=== PATIENT | female | born 1995 | race African-American/Black ===

== ENCOUNTER 2021-03-10 23:11 | Emergency (ER) | payer OTHER ==
[~2021-03-10] VITALS: Ht 165.1 cm; Wt 50.4 kg
[2021-03-10] MEDS ORDERED: IV NORMAL SALINE 1,000ML 1,000 ML IV ONE (23:30)
--- NOTE | 2021-03-10 23:35 | PHYS DOC ---
General Adult EDM: Chief Complaint: OB/UTERINE CONTRACTIONS HPI: HPI: Patient is a 25 year old female who presents with contractions. She states she is 7 months and started having pain that felt like contractions earlier tonight. She says she gets pain every few minutes but has not kept track of how often. Her last OB appointment was in February and she is due in April. She says she had some clear colored discharge 2 days ago but has had no bleeding. She complains of her vaginal area feeling irritated and itchy. She denies nausea, vomiting, fever, headache, dizziness. Review of Systems: Review of Systems: Constitutional: Denies fever or chills Eyes: Denies redness or eye pain HENT: Denies nasal congestion or sore throat Respiratory: Denies cough or shortness of breath Cardiovascular: Denies chest pain or palpitations GI: Denies nausea, or vomiting. : Denies dysuria or hematuria. Complains of irritation in vaginal area. Musculoskeletal: Denies back pain or joint pain Integument: Denies rash or skin lesions Neurologic: Denies headache, focal weakness or sensory changes Complete systems were reviewed and found to be within normal limits, except as documented in this note. Current Medications: Current Meds: Current Medications Medications (Trade) Dose Ordered Sig/Gabino Start Time Stop Time Status Last Admin Dose Admin Sodium Chloride 1,000 ml @ 1,000 mls/hr 1X ONCE 03/10/21 23:30 03/11/21 00:29 UNV Physical Exam: PE: Constitutional: Well developed, thin, no acute distress, non-toxic appearance HENT: Normocephalic, atraumatic Eyes: EOMI, conjunctiva normal, no discharge Neck: Normal range of motion, no tenderness, supple Lungs & Thorax: No respiratory distress, equal chest rise and fall Abdomen: Soft, no tenderness Skin: Warm, dry, no erythema, no rash Back: No tenderness, no CVA tenderness Extremities: No tenderness, ROM intact, no edema Neurologic: Alert and oriented X 3, normal motor function, normal sensory function, no focal deficits noted Psychologic: Affect normal, judgment normal EKG: EKG: [] Radiology/Procedures: Radiology/Procedures: [] Heart Score: C/O Chest Pain: N/A Course & Med Decision Making: Course & Med Decision Making Pertinent Lab studies reviewed. (See chart for details) Patient presents at approximately 33 weeks with report of concern for uterine contractions. Patient does have a history of some discharge 2 days ago for which she was instructed by her OB to present to for further evaluation and treatment. Patient typically follows with Dr. Guzman (OB). No noted. Some pelvic white discharge appreciated. Cervix appears dilated to 3cm. heart rate of 130bpm. Labs obtained and posted to chart. IVF hydration given. Patient requiring labor and delivery monitoring and OB evaluation. Discussed case with transfer center and Dr. Carlos Glass (OB) who is accepting of transfer to for further evaluation and treatment. Discussed findings and plan with patient and family, who acknowledge understanding and agreement. Anahi Disclaimer: Anahi Disclaimer: This electronic medical record was generated, in whole or in part, using a voice recognition dictation system. Departure Departure: Impression: Primary Impression: Active labor Disposition: HOME / SELF CARE / HOMELESS Condition: STABLE BLAINE MORAES DO Mar 10, 2021 23:35
[2021-03-11 00:03] LABS: CALCIUM 8.8 mg/dL (8.5-10.1); CREATININE 0.5 mg/dL (0.6-1.0); GFR 149.1; POTASSIUM 3.8 mmol/L (3.5-5.1)
[2021-03-11 00:07] LABS: BASO % 0 % (0-3); EOS # 0.2 x10^3/uL (0.0-0.7); EOS % 2 % (0-3); HEMATOCRIT 25.8 % (36.0-47.0); HEMOGLOBIN 8.3 g/dL (12.0-15.5); LYMPH # 2.4 x10^3/uL (1.0-4.8); LYMPH % 25 % (24-48); MEAN CORPUSCULAR HEMOGLOBIN 24 pg (25-35); MEAN CORPUSCULAR HGB CONC 32 g/dL (31-37); MEAN CORPUSCULAR VOLUME 75 fL (79-100); MONO # 0.7 x10^3/uL (0.0-1.1); MONO % 8 % (0-9); NEUT # 6.1 x10^3uL (1.8-7.7); NEUT % 65 % (31-73); PLATELET COUNT 187 x10^3/uL (140-400); RED BLOOD COUNT 3.46 x10^6/uL (3.50-5.40); RED CELL DISTRIBUTION WIDTH 16.5 % (11.5-14.5); WHITE BLOOD COUNT 9.5 x10^3/uL (4.0-11.0)
[2021-03-11 00:09] LABS: ALBUMIN 2.8 g/dL (3.4-5.0); ALBUMIN/GLOBULIN RATIO 0.8 (1.0-1.7); MAGNESIUM 1.9 mg/dL (1.8-2.4); TOTAL BILIRUBIN 0.3 mg/dL (0.2-1.0); TOTAL PROTEIN 6.5 g/dL (6.4-8.2)
[2021-03-11 00:50] VITALS: BP 103/67
[2021-03-13 01:10] LABS: CHLAMYDIA PROBE Negative (Negative)
== END 2021-03-11 00:50 | disposition home or self-care (01) ==
LOC: ER 23:11
DX: O60.03 Preterm labor without delivery, third trimester (principal); Z3A.33 33 weeks gestation of pregnancy
CPT/HCPCS: 36415; 80053; 83735; 84702; 85025; 87491; 87591; 96360; 99284; J7030; Q0111

== ENCOUNTER 2021-04-30 22:17 | Emergency (ER) | payer OTHER ==
[~2021-04-30] VITALS: Ht 165.1 cm; Wt 50.0 kg
--- NOTE | 2021-04-30 22:28 | PHYS DOC ---
Past History Past Medical History: No Pertinent History Past Surgical History: No Surgical History Smoking: Non-smoker Alcohol Use: None Drug Use: None General Adult HPI: HPI: ". My lt. arm and leg seem weak.." " I have not bounced back from this pregancy.. like I did with my other one.. " .." More tired.." " I was sleeping in the bed with my baby.. " " I woke up an it seemed like my Lt arm and may be my leg seemed weak .. or the feeling was different.. " Patient is a 25 year old female who presents with above hx and complaints left arm and leg with decreased sensation upon waking from a nap. Patient's currently has no complaints of this symptom. Complaints resolved in minutes. Patient has no fever history of previous TIAs or CVAs. Patient states she may have slept wrong on her left arm and leg. Patient delivered on March 10. Patient does complain of increased fatigue with this . Particularly post . Patient is 2 para 2. No history of trauma. Denies history of specific ill contacts. No history of travel. Does have a history of anemia. Patient states she has been sleeping less because of the childcare issues. Review of Systems: Review of Systems: Constitutional: Denies fever or chills Eyes: Denies change in visual acuity HENT: Denies nasal congestion or sore throat Respiratory: Denies cough or shortness of breath Cardiovascular: Denies chest pain or edema GI: Denies abdominal pain, nausea, vomiting, bloody stools or diarrhea : Denies dysuria Musculoskeletal: Denies back pain or joint pain. Complains of generalized fatigue Integument: Denies rash Neurologic: Denies headache, focal weakness or sensory changes . Complains of decreased sensation left arm and left leg Endocrine: Denies polyuria or polydipsia Lymphatic: Denies swollen glands Psychiatric: Denies depression or anxiety Family History: Family History: Noncontributory to presentation Current Medications: Current Meds: See nursing for home meds Allergies: Allergies: Allergies Coded Allergies Type Severity Reaction Last Updated Verified No Known Drug Allergies 03/10/21 No Physical Exam: PE: Constitutional: no acute distress, non-toxic appearance. [] HENT: Normocephalic, atraumatic, bilateral external ears normal, oropharynx moist, no oral exudates, nose normal. [] Eyes: PERRLA, EOMI, conjunctiva pale, no discharge. [] Neck: Normal range of motion, no tenderness, supple, no stridor. [] Cardiovascular: Bradycardia heart rate regular rhythm, no murmur [] Lungs & Thorax: Bilateral breath sounds equal apex few scattered wheezes auscultation [] Abdomen: Bowel sounds normal, soft, no tenderness, no masses, no pulsatile masses. [] Skin: Warm, dry, no erythema, no rash. [] Back: No tenderness, no CVA tenderness. [] Extremities: No tenderness, no cyanosis, no clubbing, ROM intact, no edema. [] Neurologic: Alert and oriented X 3, moves all extremities on request, has distal sensory., no focal deficits noted. Patient complains of no symptoms currently. No focal loss. [id number]. DTRs +2. No drift. Essentially normal neuro exam at this time Psychologic: Affect anxious, judgement normal, mood normal. [] EKG: EKG: My interpretation EKG shows a sinus bradycardia at 50 bpm. No acute morphology [] Radiology/Procedures: Radiology/Procedures: [][address] [address] IMAGING REPORT Signed PATIENT: ABRAHAM FULLER ACCOUNT: [id number] : 1995 LOCATION: ER AGE: 25 SEX: F EXAM STATUS: PRE ER ORD. PHYSICIAN: GREG PEMBERTON MD REASON: weakness PROCEDURE: CT HEAD WO CONTRAST EXAM: CT head without contrast INDICATION: Weakness COMPARISON: None TECHNIQUE: Axial CT imaging through the head without intravenous contrast. One or more of the following individualized dose reduction techniques were utilized for this examination: 1. Automated exposure control 2. Adjustment of the mA and/or kV according to patient size 3. Use of iterative reconstruction technique. FINDINGS: The ventricles and sulci are normal. There is a mild burden of periventricular and deep hypoattenuating white matter lesions. Herrera-white matter diff erentiation is maintained. There is no intracranial hemorrhage, acute infarct, or mass lesion. Basal cisterns are clear. The skull and scalp are intact. The visualized sinuses and mastoid air cells are clear. IMPRESSION: No acute intracranial abnormality. Electronically signed by: Susana Wilson MD (05/01/2021 1:45 AM) [id number] DICTATED AND SIGNED BY: SUSANA WILSON MD DATE: 05/01/21143 CC: GREG PEMBERTON MD; PCP,NO ~MTH0 [address] [place] [address] IMAGING REPORT Signed PATIENT: ABRAHAM FULLER ACCOUNT: [id number] : 1995 LOCATION: ER AGE: 25 SEX: F EXAM STATUS: PRE ER ORD. PHYSICIAN: GREG PEMBERTON MD REASON: weakness PROCEDURE: CT HEAD WO CONTRAST EXAM: CT head without contrast INDICATION: Weakness COMPARISON: None TECHNIQUE: Axial CT imaging through the head without intravenous contrast. One or more of the following individualized dose reduction techniques were utilized for this examination: 1. Automated exposure control 2. Adjustment of the mA and/or kV according to patient size 3. Use of iterative reconstruction technique. FINDINGS: The ventricles and sulci are normal. There is a mild burden of periventricular and deep hypoattenuating white matter lesions. Herrera-white matter differentiation is maintained. There is no intracranial hemorrhage, acute infarct, or mass lesion. Basal cisterns are clear. The skull and scalp are intact. The visualized sinuses and mastoid air cells are clear. IMPRESSION: No acute intracranial abnormality. Electronically signed by: Susana Wilson MD (05/01/2021 1:45 AM) [id number] DICTATED AND SIGNED BY: SUSANA WILSON MD DATE: 05/01/21143 CC: GREG PEMBERTON MD; PCP,NO ~MTH0 0 Heart Score: C/O Chest Pain: N/A HEART Score for Chest Pain: HEART Score for Chest Pain Response (Comments) Value History Slighlty/Non-Suspicious 0 ECG Normal 0 Age < 45 0 Risk Factors No Risk Factors 0 Troponin < Normal Limit 0 Total 0 Risk Factors: Risk Factors: DM, Current or recent (<one month) smoker, HTN, HLP, family history of CAD, obesity. Risk Scores: Score 0 - 3: 2.5% MACE over next 6 weeks - Discharge Home Score 4 - 6: 20.3% MACE over next 6 weeks - Admit for Clinical Observation Score 7 - 10: 72.7% MACE over next 6 weeks - Early Invasive Strategies Course & Med Decision Making: Course & Med Decision Making Pertinent Labs and Imaging studies reviewed. (See chart for details) Encourage patient to continue her vitamins. Patient follow-up ED work- up with primary care. Patient return if any concerns. Patient take a daily aspirin/or half an aspirin until follow-up with primary care. Patient take Keflex 500 mg 3 times a day x7 days. Afterwards take Diflucan 100 mg daily for 3 days. Patient follow-up pending urine cultures. Patient return if any concerns. Patient follow-up primary care. Impression: 1. History of generalized weakness and fatigue 2. History of transient decreased sensation of left arm and leg-TIA ? 3. Microcytic hyperchromic anemia-hemoglobin 10.9, MCV 73 MCH 24 4. Urinary tract infection [] Dragon Disclaimer: Dragon Disclaimer: This electronic medical record was generated, in whole or in part, using a voice recognition dictation system. Departure Departure: Referrals: PCP,NO (PCP) Scripts Fluconazole (DIFLUCAN) 100 Mg Tablet 100 MG PO DAILY for post antibiotic for 3 Days, #3 TAB Prov: GREG PEMBERTON MD 05/01/21 Cephalexin (KEFLEX) 500 Mg Capsule 500 MG PO TID for UTI for 7 Days, #21 CAP Prov: GREG PEMBERTON MD 05/01/21 Dragon Disclaimer This chart was dictated in whole or in part using Voice Recognition software in a busy, high-work load, and often noisy Emergency Department environment. It may contain unintended and wholly unrecognized errors or omissions. Dragon Disclaimer This chart was dictated in whole or in part using Voice Recognition software in a busy, high-work load, and often noisy Emergency Department environment. It may contain unintended and wholly unrecognized errors or omissions. GREG PEMBERTON MD Apr 30, 2021 22:28
[2021-05-01 00:15] LABS: BASO % 1 % (0-3); EOS # 0.3 x10^3/uL (0.0-0.7); EOS % 5 % (0-3); HEMATOCRIT 33.9 % (36.0-47.0); HEMOGLOBIN 10.9 g/dL (12.0-15.5); LYMPH # 2.2 x10^3/uL (1.0-4.8); LYMPH % 30 % (24-48); MEAN CORPUSCULAR HEMOGLOBIN 24 pg (25-35); MEAN CORPUSCULAR HGB CONC 32 g/dL (31-37); MEAN CORPUSCULAR VOLUME 73 fL (79-100); MONO # 0.4 x10^3/uL (0.0-1.1); MONO % 6 % (0-9); NEUT # 4.4 x10^3uL (1.8-7.7); NEUT % 60 % (31-73); PLATELET COUNT 302 x10^3/uL (140-400); RED BLOOD COUNT 4.62 x10^6/uL (3.50-5.40); RED CELL DISTRIBUTION WIDTH 22.2 % (11.5-14.5); WHITE BLOOD COUNT 7.4 x10^3/uL (4.0-11.0)
[2021-05-01 00:23] LABS: BACTERIA,URINE FEW /HPF (0-FEW); BILIRUBIN,URINE NEG (NEG); CLARITY,URINE HAZY; COLOR,URINE YELLOW; GLUCOSE,URINE NEG (NEG); NITRITE,URINE NEG (NEG); SQUAMOUS EPITHELIAL CELL,UR OCC /LPF; UROBILINOGEN,URINE 0.2 mg/dL (0.2 mg/dL); WBC,URINE >40 /HPF (0-4)
[2021-05-01 00:27] LABS: ANISOCYTOSIS SLIGHT; HYPOCHROMIA SLIGHT; MICROCYTOSIS SLIGHT; PLT ESTIMATE ADEQUATE (ADEQUATE)
[2021-05-01 00:28] LABS: CREATININE 0.6 mg/dL (0.6-1.0); GFR 146.2; POTASSIUM 3.3 mmol/L (3.5-5.1)
[2021-05-01 00:31] LABS: MAGNESIUM 2.1 mg/dL (1.8-2.4)
[2021-05-01] MEDS: IV RINGERS SOLUTION,LACTATED 1,000 ML IV SCH (00:36)
--- NOTE | 2021-05-01 00:39 | EKG ---
[address] [address] Test Date: 2021-05-01 Test Time: 00:17:51 Pat Name: ABRAHAM FULLER Department: Room: Gender: F [employer] H[employer] Developer: : 1995 Requested By: GREG PEMBERTON Order Number: [id number] Reading MD: Measurements Intervals Williams Rate: 50 P: 49 LA: 140 QRS: 26 QRSD: 94 T: 43 QT: 434 QTc: 398 Interpretive Statements SINUS RHYTHM NORMAL ECG RI6.02 No previous ECG available for comparison
[2021-05-01] MEDS ORDERED: CEPH500C PO (01:25)
[2021-05-01] MEDS ORDERED: FLUC100T7 PO (01:27)
[2021-05-01] MEDS ORDERED: cefTRIAXone SODIUM 1 GM VIAL ONE (01:31)
[2021-05-01] MEDS ORDERED: IV NORMAL SALINE 50ML 50 ML ONE (01:31)
--- NOTE | 2021-05-01 01:47 | RAD ---
EXAM: CT head without contrast INDICATION: Weakness COMPARISON: None TECHNIQUE: Axial CT imaging through the head without intravenous contrast. One or more of the following individualized dose reduction techniques were utilized for this examinat ion: 1. Automated exposure control 2. Adjustment of the mA and/or kV according to patient size 3. Use of iterative reconstruction technique. FINDINGS: The ventricles and sulci are normal. There is a mild burden of periventricular and deep hypoattenuati ng white matter lesions. Herrera-white matter differentiation is maintained. There is no intracranial h emorrhage, acute infarct, or mass lesion. Basal cisterns are clear. The skull and scalp are intact. The visualized sinuses and mastoid air cells are clear. IMPRESSION: No acute intracranial abnormality. Electronically signed by: Susana Wilson MD (05/01/2021 1:45 AM) [id number]
[2021-05-01] MEDS: ASPIRIN 325 MG TABLET PO ONE (02:15)
[2021-05-01 02:30] VITALS: BP 108/59
== END 2021-05-01 02:35 | disposition home or self-care (01) ==
LOC: ER 22:17
DX: N39.0 Urinary tract infection, site not specified (principal); R53.1 Weakness; D64.9 Anemia, unspecified
CPT/HCPCS: 36415; 70450; 80048; 81001; 83735; 84443; 84484; 85025; 87086; 93005; 96361; 96374; 99285; J0696; J7120

== ENCOUNTER 2021-05-28 21:00 | Emergency (ER) | payer OTHER ==
[~2021-05-28] VITALS: Ht 165.1 cm; Wt 49.9 kg
[~2021-05-28 21:00] MED LIST: CEPH500C PO; FLUC100T7 PO
--- NOTE | 2021-05-28 21:29 | PHYS DOC ---
Past History Past Medical History: No Pertinent History (DAYANARA CORTES APRN) Past Surgical History: No Surgical History (DAYANARA CORTES APRN) Smoking: Non-smoker Alcohol Use: None Drug Use: None (DAYANARA CORTES APRN) General Adult EDM: Chief Complaint: COUGH HPI: HPI: Patient is a 25-year-old female who presents with cough, fever, shortness of breath for 5 days. Patient states "I do not have any sense of taste or smell and I think I have Covid". Denies medical history. (DAYANARA CORTES APRN) Review of Systems: Review of Systems: Constitutional: Reports fever and chills Eyes: Denies change in visual acuity HENT: Denies nasal congestion or sore throat Respiratory: Reports cough and shortness of breath Cardiovascular: Denies chest pain or edema GI: Denies abdominal pain, nausea, vomiting, bloody stools or diarrhea : Denies dysuria Musculoskeletal: Denies back pain or joint pain Integument: Denies rash Neurologic: Denies headache, focal weakness or sensory changes Endocrine: Denies polyuria or polydipsia Lymphatic: Denies swollen glands Psychiatric: Denies depression or anxiety (DAYANARA CORTES APRN) Allergies: Allergies: Allergies Coded Allergies Type Severity Reaction Last Updated Verified No Known Drug Allergies 03/10/21 No (DAYANARA CORTES APRN) Physical Exam: PE: Constitutional: Well developed, well nourished, no acute distress, non-toxic appearance. [] HENT: Normocephalic, atraumatic, bilateral external ears normal, oropharynx moist, no oral exudates, nose normal. [] Eyes: PERRLA, EOMI, conjunctiva normal, no discharge. [] Neck: Normal range of motion, no tenderness, supple, no stridor. [] Cardiovascular:Heart rate regular rhythm, no murmur [] Lungs & Thorax: Bilateral breath sounds clear to auscultation [] Abdomen: Bowel sounds normal, soft, no tenderness, no masses, no pulsatile masses. [] Skin: Warm, dry, no erythema, no rash. [] Back: No tenderness, no CVA tenderness. [] Extremities: No tenderness, no cyanosis, no clubbing, ROM intact, no edema. [] Neurologic: Alert and oriented X 3, normal motor function, normal sensory function, no focal deficits noted. [] Psychologic: Affect normal, judgement normal, mood normal. [] (DAYANARA CORTES APRN) Current Patient Data: Vital Signs: Vital Signs Date Time Temp Pulse Resp B/P (MAP) Pulse Ox O2 Delivery O2 Flow Rate FiO2 05/28/21 21:02 98.6 88 18 110/74 (86) 98 Room Air (DAYANARA CORTES APRN) EKG: EKG: [] (DAYANARA CORTES APRN) Radiology/Procedures: Radiology/Procedures: [] XR CHEST 1V History: Reason: cough / Spl. Instructions: / History: Comparison: None. Findings: No consolidation or pleural effusion. Normal heart size. No pneumothorax. Impression: 1. No acute cardiopulmonary process. Electronically signed by: Ramiro Covington DO (05/28/2021 10:03 PM) [facility] (DAYANARA CORTES APRN) Heart Score: C/O Chest Pain: No Risk Factors: Risk Factors: DM, Current or recent (<one month) smoker, HTN, HLP, family history of CAD, obesity. Risk Scores: Score 0 - 3: 2.5% MACE over next 6 weeks - Discharge Home Score 4 - 6: 20.3% MACE over next 6 weeks - Admit for Clinical Observation Score 7 - 10: 72.7% MACE over next 6 weeks - Early Invasive Strategies (DAYANARA CORTES APRN) Course & Med Decision Making: Course & Med Decision Making Pertinent Labs and Imaging studies reviewed. (See chart for details) [] 25-year-old female presents with cough, fever, shortness of breath. Patient states symptoms started 5 days ago. Patient is concerned about having Covid. Chest x-ray ordered to rule out pneumonia. Patient given dexamethasone, Motrin, albuterol inhaler. Chest x-ray is negative. Advised patient she needs to quarantine until she gets back Covid results. Ibuprofen and Tylenol at home. Use her inhaler if needed. Gave strict return precautions. Patient is appreciative and understands discharge instructions. Patient is hemodynamically stable upon disposition. (DAYANARA CORTES APRN) Course & Med Decision Making Did not see or evaluate patient. Did not discuss patient with AUTOMOTIVE MACHINIST APPRENTICE. Agree with AUTOMOTIVE MACHINIST APPRENTICE's work-up and disposition per note. (GENTRY CHAVEZ MD) Anahi Disclaimer: Anhai Disclaimer: This electronic medical record was generated, in whole or in part, using a voice recognition dictation system. (DAYANARA CORTES APRN) Departure Departure: Impression: Primary Impression: Cough Additional Impression: Person under investigation for COVID-19 Disposition: 01 HOME / SELF CARE / HOMELESS Condition: STABLE Referrals: COREY LOBO (PCP) Patient Instructions: Cough, Adult, [id number] Additional Instructions: You have been tested for or diagnosed with COVID-19. It is an infection caused by a new type of coronavirus. COVID-19 will cause cold-like or mild flu symptoms in most. It can cause more severe symptoms like problems breathing in some. There is no treatment for COVID-19. The body will clear the infection over time. Self-care will help to ease discomfort. Steps to Take: Self-Care Rest as needed. Healthy habits may help you feel better. Steps include: Choose healthy foods including fruits and vegetables. Drink water throughout the day. Get plenty of sleep each night. If you smoke, try to quit. It may ease breathing. Avoid alcohol. Keep Others Healthy The virus can spread to others. Droplets are released every time you sneeze or cough. The droplets can get into the mouth, nose, or eyes of people near you and lead to infection. To lower the chances of spreading COVID-19 to others: Stay at home until your doctor has said it is safe to leave. If you tested positive this will mean staying isolated until both of the following are true: At least 7 days have passed since the start of illness. You are free of fever for at least 72 hours without the use of medicine. During this time: - Avoid public areas, events, or transportation. Do not return to work or school until your doctor has said it is safe to do so. - Call ahead if you need to go to a medical center. Let them know you may have COVID-19. It will help them guide you where to go. They may also ask you to wear a facemask when you come to the office. - If you call for emergency medical services, let them know you may have COVID- 19. While at home: - Try to avoid close contact with others. Stay about 6 feet away. - If possible, spend most of your time in a separate room from others. - Use a face mask if you will be in close contact with others such as sharing a room or vehicle. - Have someone wipe down common surfaces in the home. Use household fixture repairer fabricator every day on areas like doorknobs, counters, or sinks. - Cough or sneeze into a tissue. Throw the tissue away right after use. If a tissue is not available, cough or sneeze into your elbow. - Wash your hands often. Wash them after sneezing or coughing. Use soap and water and wash for at least 20 seconds. Alcohol based hand pattern cleaner can be used if soap and water is not available. - Do not prepare food for others. Avoid sharing personal items like forks, spo ons, or toothbrushes. - Avoid close contact with pets while you are sick. There is no evidence of the virus passing to pets. This is a safety step until more is known about this virus. Isolation can be frustrating. Social interaction can help. Keep in touch with friends and family through phone and tech options. You can still interact with others in your home, just keep a safe distance of about 6 feet. Follow-up: Your doctors office will check in with you to see if there are any changes in your health. You may be asked to keep track of symptoms to share with them. They will also let you know when you are clear to be in public again. Problems to Look Out For: Contact your doctor if your recovery is not going as you expect. Get emergency care if you have problems such as: - Trouble breathing - Nonstop chest pain or pressure - Changes in awareness, confusion, or problems waking - Lips or face have bluish color - Worsening of symptoms If you think you have an emergency, call for emergency medical services right away. As taken from [facility] DAYANARA CORTES APRN May 28, 2021 21:29 GENTRY CHAVEZ MD May 28, 2021 23:14
--- NOTE | 2021-05-28 22:05 | RAD ---
XR CHEST 1V History: Reason: cough / Spl. Instructions: / History: Comparison: None. Findings: No consolidation or pleural effusion. Normal heart size. No pneumothorax. Impression: 1. No acute cardiopulmonary process. Electronically signed by: Ramiro Covington DO (05/28/2021 10:03 PM) [facility]
[2021-05-28] MEDS: ALBUTEROL SULFATE 8GM INHALER. INH ONE (22:21)
[2021-05-28] MEDS: DEXAMETHASONE SOD PHOS 10 MG/ML VIAL. IVP ONE (22:46)
[2021-05-28] MEDS: IBUPROFEN 600 MG TABLET. PO ONE (22:48)
[2021-05-28 22:51] VITALS: BP 111/60
== END 2021-05-28 22:53 | disposition home or self-care (01) ==
LOC: ER 21:00
DX: U07.1 COVID-19 (principal); R05 Cough
CPT/HCPCS: 71045; 96374; 99284; C9803; J1100; U0003

== ENCOUNTER 2021-06-18 00:16 | Emergency (ER) | payer OTHER ==
[~2021-06-18] VITALS: Ht 165.1 cm; Wt 49.9 kg
--- NOTE | 2021-06-18 00:35 | PHYS DOC ---
Past History Past Medical History: No Pertinent History Past Surgical History: No Surgical History Smoking: Non-smoker Alcohol Use: None Drug Use: None Adult General Chief Complaint Chief Complaint: ANXIETY/PANIC ATTACK HPI HPI Patient is a 25-year-old female with a past medical history significant for anxiety, panic attacks and depression who presents with an anxiety attack which started approximately half an hour before coming to the emergency department. States she feels like her heart is racing, feel scared and shaky. States she gets these a couple times a month. Denies any recent travel, travels, illnesses, fevers, chest pain, shortness of breath, abdominal pain, nausea, vomiting, dysuria, hematuria or blood in the stool. Denies any alcohol or drug use. Review of Systems Review of Systems Review of systems otherwise unremarkable except noted in HPI Allergies Allergies Allergies Coded Allergies Type Severity Reaction Last Updated Verified No Known Drug Allergies 03/10/21 No Physical Exam Physical Exam Constitutional: Well developed, well nourished, no acute distress, non-toxic appearance. [] HENT: Normocephalic, atraumatic, bilateral external ears normal, oropharynx moist, no oral exudates, nose normal. [] Eyes: conjunctiva normal, no discharge. [] Neck: Normal range of motion, no tenderness, supple, no stridor. [] Cardiovascular:Heart rate regular rhythm, no murmur [] Lungs & Thorax: Bilateral breath sounds clear to auscultation [] Abdomen: soft, no tenderness, no masses, no pulsatile masses. [] Skin: Warm, dry, no erythema, no rash. [] Extremities: No tenderness, no cyanosis, no clubbing, ROM intact, no edema. [] Neurologic: Alert and oriented X 3, normal motor function, normal sensory function, able to sit, stand and walk without issue, no focal deficits noted. [] Psychologic: Affect normal, judgement normal, mood normal. [] EKG EKG [] Radiology/Procedures Radiology/Procedures [] Heart Score C/O Chest Pain: N/A Risk Factors: Risk Factors: DM, Current or recent (<one month) smoker, HTN, HLP, family history of CAD, obesity. Risk Scores: Risk Factors: DM, Current or recent (<one month) smoker, HTN, HLP, family history of CAD, obesity. Course & Med Decision Making Course & Med Decision Making Patient is a 25-year-old female who presents with an anxiety/panic attack Vital signs not concerning. Physical exam noted above. EKG with a rate of 94, QRS of 108, QTc of 425, no STEMI. Given oral diazepam. Patient stated she was in the emergency department about 4 weeks ago and diagnosed with a urinary tract infection and given medicine, but never filled it because she does not take any pills and wanted to know if there was a medicine she could take that was liquid because she will not swallow pills. Given dose of fosfomycin in the ED. Patient states she has been doing good and essentially quit taking her medicine for anxiety and panic attacks because she was doing better with less episodes per month. Discussed all findings with patient and advised to call her primary care physician in the morning to update on her ED visit and set up a follow-up as soon as possible. Gave strict return precautions to the ED. Patient grateful, verbalized understanding and agreed with plan of discharge. [] Dragon Disclaimer Dragon Disclaimer This electronic medical record was generated, in whole or in part, using a voice recognition dictation system. Departure Departure: Impression: Primary Impression: Panic attack Additional Impression: Urinary tract infection Disposition: HOME / SELF CARE / HOMELESS Condition: GOOD Referrals: COREY LOBO (PCP) Patient Instructions: Anxiety and Panic Attacks, Urinary Tract Infection Additional Instructions: Thank you for coming into the emergency department tonight and allowing us to take care of you. Please read the attached information carefully to go back over some of the things we discussed. You can use some of the techniques we discussed such as breathing and calling the [facility] hotline if you are feeling anxious and feel like you are having a panic attack as well as talking to friends and loved ones. Please call your primary care physician first thing in the morning to discuss your ED visit and set up an appointment as soon as p ossible to discuss further management of your anxiety and panic attacks. Please come back to the ED with new or concerning symptoms as we discussed. Problem Qualifiers GENTRY CHAVEZ MD Jun 18, 2021 00:35
[2021-06-18] MEDS ORDERED: diazePAM 5 MG TABLET. PO ONE (01:00)
[2021-06-18] MEDS ORDERED: FOSFOMYCIN TROMETHAMINE 3 GM PACKET PO ONE (02:00)
[2021-06-18 02:36] VITALS: BP 122/68
--- NOTE | 2021-06-18 03:03 | EKG ---
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
== END 2021-06-18 02:40 | disposition home or self-care (01) ==
LOC: ER 00:16
DX: F41.0 Panic disorder [episodic paroxysmal anxiety] (principal); N39.0 Urinary tract infection, site not specified
CPT/HCPCS: 81025; 93005; 99283

== ENCOUNTER 2021-06-27 08:53 | Emergency (ER) | payer OTHER ==
[~2021-06-27] VITALS: Ht 165.1 cm; Wt 49.9 kg
--- NOTE | 2021-06-27 09:14 | PHYS DOC ---
Past History Past Medical History: No Pertinent History Past Surgical History: No Surgical History Smoking: Non-smoker Alcohol Use: None Drug Use: None General Adult EDM: Chief Complaint: MULTIPLE COMPLAINTS HPI: HPI: 25-year-old female presents via EMS for heartburn and anxiety. She tells me that she has a lot of anxiety but does not take any medication for anxiety. She had some heartburn last night and took [place] but she still has this burning feeling in her upper chest. She has not tried anything else for her heartburn. She does not swallow pills but does not specifically say why. She has no other specific complaints. Review of Systems: Review of Systems: Constitutional: Denies fever or chills Eyes: Denies change in visual acuity HENT: Denies nasal congestion or sore throat Respiratory: Denies cough or shortness of breath Cardiovascular: Upper chest pain, heartburn. GI: Denies abdominal pain, nausea, vomiting, bloody stools or diarrhea : Denies dysuria Musculoskeletal: Denies back pain or joint pain Integument: Denies rash Neurologic: Denies headache, focal weakness or sensory changes Endocrine: Denies polyuria or polydipsia Lymphatic: Denies swollen glands Psychiatric: anxiety Current Medications: Current Meds: Current Medications Medications (Trade) Dose Ordered Sig/Gabino Start Time Stop Time Status Last Admin Dose Admin Famotidine (Pepcid Vial) 20 mg 1X ONCE 06/27/21 09:15 06/27/21 09:16 UNV Famotidine (Pepcid) 20 mg 1X ONCE 06/27/21 09:15 06/27/21 09:16 UNV Multi-Ingredient Mouthwash/Gargle (Gi Cocktail) 20 ml 1X ONCE 06/27/21 09:15 06/27/21 09:16 UNV 06/27/21 09:06 20 ML Sodium Chloride 1,000 ml @ 1,000 mls/hr 1X ONCE 06/27/21 09:15 06/27/21 10:14 UNV Allergies: Allergies: Allergies Coded Allergies Type Severity Reaction Last Updated Verified No Known Drug Allergies 03/10/21 No Physical Exam: PE: Constitutional: Well developed, well nourished, no acute distress, unkept, non- toxic appearance. [] HENT: Normocephalic, atraumatic, bilateral external ears normal, oropharynx very dry, no oral exudates, nose normal. [] Eyes: PERRLA, EOMI, conjunctiva normal, no discharge. [] Neck: Normal range of motion, no tenderness, supple, no stridor. [] Cardiovascular: Heart rate regular rhythm, no murmur [] Lungs & Thorax: Bilateral breath sounds clear to auscultation [] Abdomen: Bowel sounds normal, soft, no tenderness, no masses, no pulsatile masses. [] Skin: Warm, dry, no erythema, no rash. [] Back: No tenderness, no CVA tenderness. [] Extremities: No tenderness, no cyanosis, no clubbing, ROM intact, no edema. [] Neurologic: Alert and oriented X 3, normal motor function, normal sensory function, no focal deficits noted. [] Psychologic: Affect normal, judgement normal, mood anxious. [] EKG: EKG: [] Radiology/Procedures: Radiology/Procedures: [] Heart Score: C/O Chest Pain: N/A Risk Factors: Risk Factors: DM, Current or recent (<one month) smoker, HTN, HLP, family history of CAD, obesity. Risk Scores: Score 0 - 3: 2.5% MACE over next 6 weeks - Discharge Home Score 4 - 6: 20.3% MACE over next 6 weeks - Admit for Clinical Observation Score 7 - 10: 72.7% MACE over next 6 weeks - Early Invasive Strategies Course & Med Decision Making: Course & Med Decision Making Pertinent Labs and Imaging studies reviewed. (See chart for details) The patient's labs are unremarkable. We did give her a liter normal saline because she looked very dehydrated. I have advised that she drink more water. For her heart burn, we gave 20 mg of Pepcid and a GI cocktail. Her pain is improved at this time. I will discharge her with a trial of hydroxyzine for her anxiety. She is stable for discharge at this time. [] Dragon Disclaimer: Anahi Disclaimer: This electronic medical record was generated, in whole or in part, using a voice recognition dictation system. Departure Departure: Impression: Primary Impression: GERD (gastroesophageal reflux disease) Additional Impression: Anxiety about health Disposition: HOME / SELF CARE / HOMELESS Condition: IMPROVED Referrals: COREY LBOO (PCP) Patient Instructions: Anxiety and Panic Attacks, [id number], Heartburn, [id number] Scripts Hydroxyzine Hcl (HYDROXYZINE HCL) 10 Mg/5 Ml Syrup 5-10 ML PO TID PRN for ANXIETY / AGITATION for 10 Days, #150 ML 0 Refills Prov: CHRISTIANO MAE DO 06/27/21 CHRISTIANO MAE DO Jun 27, 2021 09:14
[2021-06-27] MEDS ORDERED: FAMOTIDINE 20 MG/2 ML VIAL IVP ONE (09:15)
[2021-06-27] MEDS ORDERED: IV NORMAL SALINE 1,000ML 1,000 ML IV ONE (09:15)
[2021-06-27] MEDS ORDERED: FAMOTIDINE 20 MG TABLET PO ONE (09:15)
[2021-06-27] MEDS ORDERED: LIDO:MAALOX 1:1 20 ML SINGLE DOSE. PO ONE (09:15)
[2021-06-27 09:38] VITALS: BP 130/76
[2021-06-27 09:41] LABS: BASO % 1 % (0-3); EOS # 0.2 x10^3/uL (0.0-0.7); EOS % 3 % (0-3); HEMATOCRIT 39.9 % (36.0-47.0); HEMOGLOBIN 12.8 g/dL (12.0-15.5); LYMPH # 2.1 x10^3/uL (1.0-4.8); LYMPH % 34 % (24-48); MEAN CORPUSCULAR HEMOGLOBIN 25 pg (25-35); MEAN CORPUSCULAR HGB CONC 32 g/dL (31-37); MEAN CORPUSCULAR VOLUME 79 fL (79-100); MONO # 0.3 x10^3/uL (0.0-1.1); MONO % 5 % (0-9); NEUT # 3.5 x10^3uL (1.8-7.7); NEUT % 57 % (31-73); PLATELET COUNT 295 x10^3/uL (140-400); RED BLOOD COUNT 5.06 x10^6/uL (3.50-5.40); RED CELL DISTRIBUTION WIDTH 23.9 % (11.5-14.5); WHITE BLOOD COUNT 6.2 x10^3/uL (4.0-11.0)
[2021-06-27 09:47] LABS: CALCIUM 8.9 mg/dL (8.5-10.1); CREATININE 0.7 mg/dL (0.6-1.0); GFR 122.4; POTASSIUM 3.2 mmol/L (3.5-5.1)
[2021-06-27 09:53] LABS: ALBUMIN/GLOBULIN RATIO 1.1 (1.0-1.7); TOTAL BILIRUBIN 0.5 mg/dL (0.2-1.0); TOTAL PROTEIN 7.7 g/dL (6.4-8.2)
[2021-06-27] MEDS ORDERED: HYDR10SY16 PO (10:21)
[2021-06-27 10:40] LABS: ANISOCYTOSIS SLIGHT; HYPOCHROMIA SLIGHT; OVALOCYTES FEW; PLT ESTIMATE ADEQUATE (ADEQUATE); SCHISTOCYTES OCC; TEAR DROP CELLS OCC
== END 2021-06-27 10:25 | disposition home or self-care (01) ==
LOC: ER 08:53
DX: K21.9 Gastro-esophageal reflux disease without esophagitis (principal); F41.9 Anxiety disorder, unspecified
CPT/HCPCS: 36415; 80053; 85025; 96361; 96374; 99283; J3490; J7030

== ENCOUNTER 2021-06-29 04:34 | Emergency (ER) | payer OTHER ==
[~2021-06-29] VITALS: Ht 165.1 cm; Wt 49.9 kg
[~2021-06-29 04:34] MED LIST changes: +HYDR10SY16 PO
--- NOTE | 2021-06-29 05:03 | PHYS DOC ---
Past History Past Medical History: No Pertinent History Past Surgical History: No Surgical History Smoking: Non-smoker Alcohol Use: None Drug Use: None Adult General HPI HPI Patient is a 25-year-old female with a past medical history of anxiety who presents with a chief complaint of chest pain, generalized, sharp in nature, intermittent, with improvement on raising her hands above her head and worse with movements such as twisting. Denies any recent traumas, travels, illnesses, fevers, shortness of breath, wheezing, abdominal pain, nausea, vomiting, dysuria, hematuria, blood in the stool. Denies any known ill contacts. Denies any alcohol or drug use. Denies any vaginal bleeding, discharge or pain. Review of Systems Review of Systems Review of systems otherwise unremarkable except noted in HPI Allergies Allergies Allergies Coded Allergies Type Severity Reaction Last Updated Verified No Known Drug Allergies 03/10/21 No Physical Exam Physical Exam Constitutional: Well developed, well nourished, no acute distress, non-toxic appearance. [] HENT: Normocephalic, atraumatic, bilateral external ears normal, oropharynx moist, no oral exudates, nose normal. [] Eyes: conjunctiva normal, no discharge. [] Neck: Normal range of motion, no tenderness, supple, no stridor. [] Cardiovascular:Heart rate regular rhythm, no murmur [] Lungs & Thorax: Bilateral breath sounds clear to auscultation [] Abdomen: soft, no tenderness, no masses, no pulsatile masses. [] Skin: Warm, dry, no erythema, no rash. [] Back: No tenderness, no CVA tenderness. [] Extremities: No tenderness, no cyanosis, no clubbing, ROM intact, no edema. [] Neurologic: Alert and oriented X 3, normal motor function, normal sensory function, able to sit, stand and walk without issue no focal deficits noted. [] Psychologic: Affect normal, judgement normal, mood normal. [] EKG EKG [] Radiology/Procedures Radiology/Procedures [] Heart Score C/O Chest Pain: N/A HEART Score for Chest Pain: HEART Score for Chest Pain Response (Comments) Value History Slighlty/Non-Suspicious 0 ECG Nonspecific Repolarizatio 1 Age < 45 0 Risk Factors No Risk Factors 0 Total 1 Risk Factors: Risk Factors: DM, Current or recent (<one month) smoker, HTN, HLP, family history of CAD, obesity. Risk Scores: Risk Factors: DM, Current or recent (<one month) smoker, HTN, HLP, family history of CAD, obesity. Course & Med Decision Making Course & Med Decision Making Patient is a 25-year-old female with anxiety who presents with generalized chest discomfort Vital signs not concerning. Physical exam noted above. EKG noted above in with no STEMI. Chest x-ray not concerning. Low risk [place]. PERC negative. Description suggestive of musculoskeletal. Patient with no dyspnea on exertion, orthopnea, PND or edema. No cardiac history. No family cardiac history at her age. Discussed all findings with patient. Gave reassurance. Advised to follow-up with primary care physician in the morning to update on ED visit and set up a follow-up. Gave return precautions to the ED. Patient grateful, verbalized understanding and agreed with plan of discharge. [] Dragon Disclaimer Dragon Disclaimer This electronic medical record was generated, in whole or in part, using a voice recognition dictation system. Departure Departure: Impression: Primary Impression: Chest pain Disposition: 01 HOME / SELF CARE / HOMELESS Condition: GOOD Referrals: COREY LOBO (PCP) Patient Instructions: Chest Pain (Nonspecific) Additional Instructions: Thank you for coming into the emergency department tonight and allowing us to take care of you. Please read the attached information carefully to go back over things we discussed. Please follow-up in the morning with your primary care physician update on your ED visit and set up a follow-up visit as possible to discuss need for further evaluation and treatment. You GENTRY CHAVEZ MD Jun 29, 2021 05:03
[2021-06-29] MEDS ORDERED: ACETAMINOPHEN 500 MG TABLET PO ONE (05:15)
[2021-06-29] MEDS ORDERED: diazePAM 5 MG TABLET. PO ONE (05:15)
--- NOTE | 2021-06-29 05:16 | RAD ---
XR CHEST 1V 06/29/2021 5:01 AM INDICATION: Chest pain COMPARISON: 05/28/2021 TECHNIQUE: Portable frontal view of the chest is provided. FINDINGS: The cardiomediastinal silhouette is within normal limits. Lungs are clear. There are no significant pleural effusions. There is no pulmonary vascular congestion. No pneumothora x. No suspicious osseous abnormality. IMPRESSION: There is no acute cardiopulmonary process. Electronically signed by: Delia Bond MD (06/29/2021 5:13 AM) [facility]
[2021-06-29] MEDS ORDERED: ACETAMINOPHEN 160 MG/5 ML ORAL.SUSP. ONE (05:23)
[2021-06-29] MEDS ORDERED: ACETAMINOPHEN 650 MG/20.3 ML SOLUTION. ONE (05:23)
[2021-06-29 06:05] VITALS: BP 101/58
== END 2021-06-29 06:15 | disposition home or self-care (01) ==
LOC: ER 04:34
DX: R07.89 Other chest pain (principal)
CPT/HCPCS: 71045; 99283

== ENCOUNTER 2021-06-30 02:20 | Emergency (ER) | payer OTHER ==
[~2021-06-30] VITALS: Ht 165.1 cm; Wt 49.9 kg
--- NOTE | 2021-06-30 02:35 | PHYS DOC ---
Past History Past Medical History: No Pertinent History, Anxiety Additional Past Medical Histor: covid last month Past Surgical History: No Surgical History Smoking: Non-smoker Alcohol Use: None Drug Use: None General Adult EDM: Chief Complaint: ANXIETY/PANIC ATTACK HPI: HPI: ".. I am having some anxiety.. I was here the other day.... 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 and just did not feel like going today... " " I did see my doctor..and they were going to get me started on some meds... but I did not go by the pharmacy.." Patient is a 25 year old female who presents with above hx and complaints of anxiety. Pt. has been non- compliant with treatment regimen. Patient denies any suicidal ideation. Patient denies any illicit drug use. Patient does not smoke. No recent travel. No specific ill contacts. Normally follows at for care. Pt. had COVID approximately 1 month ago. Had delivery of lst baby in March. Review of Systems: Review of Systems: Constitutional: Denies fever or chills Eyes: Denies change in visual acuity HENT: Denies nasal congestion or sore throat Respiratory: Denies cough or shortness of breath Cardiovascular: Denies chest pain or edema GI: Denies abdominal pain, nausea, vomiting, bloody stools or diarrhea : Denies dysuria Musculoskeletal: Denies back pain or joint pain Integument: Denies rash Neurologic: Denies headache, focal weakness or sensory changes Endocrine: Denies polyuria or polydipsia Lymphatic: Denies swollen glands Psychiatric: Complains of anxiety Family History: Family History: Noncontributory to presentation. Current Medications: Current Meds: See nursing for home meds Allergies: Allergies: Allergies Coded Allergies Type Severity Reaction Last Updated Verified No Known Drug Allergies 03/10/21 No Physical Exam: PE: Constitutional: no acute distress, non-toxic appearance. [] HENT: Normocephalic, atraumatic, bilateral external ears normal, oropharynx moist, no oral exudates, nose normal. Eczema of scalp Eyes: PERRLA, EOMI, conjunctiva normal, no discharge. [] Neck: Normal range of motion, no tenderness, supple, no stridor. [] Cardiovascular:Heart rate regular rhythm, no murmur [. Bedside monitor shows a sinus rhythm. No acute morphology. Lungs & Thorax: Bilateral breath sounds equal apex on auscultation [] Abdomen: Bowel sounds normal, soft, no tenderness, no masses, no pulsatile masses. [] Skin: Warm, dry, no erythema, extensive eczema Back: No tenderness, no CVA tenderness. [] Extremities: No tenderness, no cyanosis, no clubbing, ROM intact, no edema. No cording appreciated Neurologic: Alert and oriented X 3, moves extremities on request, has distal sensory,, no focal deficits noted. [] Psychologic: Affect reports anxiety,, judgement normal, mood normal. [] Current Patient Data: Vital Signs: Vital Signs Date Time Temp Pulse Resp B/P (MAP) Pulse Ox O2 Delivery O2 Flow Rate FiO2 06/30/21 02:29 97.5 74 16 112/44 (66) 97 Room Air EKG: EKG: Interpretation EKG shows a sinus rhythm at 75 bpm. Right axis deviation. Incomplete right bundle branch block. Baseline artifact, abnormal EKG time of EKG is 0311 hrs. [] Radiology/Procedures: Radiology/Procedures: [place] [address] IMAGING REPORT Signed PATIENT: ABRAHAM FULLER ACCOUNT: [id number] : 1995 LOCATION: ER AGE: 25 SEX: F EXAM STATUS: REG ER ORD. PHYSICIAN: GREG PEMBERTON MD REASON: chest wall pain, dyspnea, COVID - 1 month ago, OMNI 350, 75ml PROCEDURE: CT ANGIOGRAPHY CHEST PQRS Compliance Statement: One or more of the following individualized dose reduction techniques were utilized for this examination: 1. Automated exposure control 2. Adjustment of the mA and/or kV according to patient size 3. Use of iterative reconstruction technique CTA CHEST 06/30/2021 4:[address] angiography chest with contrast 06/30/2021 4:40 AM INDICATION: Chest wall pain, dyspnea. Covid one month ago COMPARISON: None available TECHNIQUE: Axial CT images of the chest were obtained after the intravenous administration of nonionic contrast. Coronal and sagittal reformats are provided. Maximum intensity projection images of the thoracic vasculature are provided. FINDINGS: The thyroid gland is normal in appearance. There are no pathologically enlarged axillary, mediastinal or hilar lymph nodes. The heart size is within normal limits. No significant pericardial effusion. Thoracic aorta is normal in course and caliber. There is adequate opacification of the pulmonary arterial system. There there are no filling defects within the pulmonary arterial system to suggest acute or chronic pulmonary embolus. There are no suspicious solid noncalcified pulmonary nodules. There are no pulmonary infiltrates. There are no pleural effusions. No pulmonary vascular congestion or pneumothorax. Visualized portions of the upper abdomen are within normal limits. No suspicious osseous lesions are visualized. IMPRESSION: There is no evidence for acute or chronic pulmonary embolism. Electronically signed by: Lia Lemon MD (06/30/2021 5:10 AM) [facility] DICTATED AND SIGNED BY: LIA LEMON MD DATE: 06/30/21 0508 CC: GREG PEMBERTON MD; COREY LOBO ~MTH0 0 [][place] [address] IMAGING REPORT Signed PATIENT: ABRAHAM FULLER ACCOUNT: [id number] : 1995 LOCATION: ER AGE: 25 SEX: F EXAM STATUS: REG ER ORD. PHYSICIAN: GREG PEMBERTON MD REASON: cp PROCEDURE: CHEST PA & LATERAL Chest radiograph 06/30/2021 3:17 AM INDICATION: Chest pain COMPARISON: 06/29/2021 TECHNIQUE: Frontal and lateral views of the chest are provided. FINDINGS: The cardiomediastinal silhouette is within normal limits. There are no pleural effusions. There is no pulmonary vascular congestion. There is no pneumothorax. The lungs are clear. No significant osseous abnormality is identified. IMPRESSION: No acute cardiopulmonary process. Electronically signed by: Lia Lemon MD (06/30/2021 3:29 AM) [facility] DICTATED AND SIGNED BY: LIA LEMON MD DATE: 06/30/21 0328 CC: GREG PEMBERTON MD; COREY LOBO ~MTH0 0 Heart Score: C/O Chest Pain: Yes HEART Score for Chest Pain: HEART Score for Chest Pain Response (Comments) Value History Moderately Suspicious 1 ECG Nonspecific Repolarizatio 1 Age < 45 0 Risk Factors 1 or 2 Risk Factors 1 Troponin < Normal Limit 0 Total 3 Risk Factors: Risk Factors: DM, Current or recent (<one month) smoker, HTN, HLP, family history of CAD, obesity. Risk Scores: Score 0 - 3: 2.5% MACE over next 6 weeks - Discharge Home Score 4 - 6: 20.3% MACE over next 6 weeks - Admit for Clinical Observation Score 7 - 10: 72.7% MACE over next 6 weeks - Early Invasive Strategies Course & Med Decision Making: Course & Med Decision Making Pertinent Labs and Imaging studies reviewed. (See chart for details) Patient to follow-up with primary care as directed. Patient take meds as previous directed. Patient return if any concerns. Impression: 1. Atypical chest pain 2. Anxiety disorder [] Dragon Disclaimer: Anahi Disclaimer: This electronic medical record was generated, in whole or in part, using a voice recognition dictation system. Departure Departure: Referrals: COREY LOBO (PCP) GREG PEMBERTON MD Jun 30, 2021 02:35
[2021-06-30] MEDS: ASPIRIN 325 MG TABLET PO ONE (03:28)
[2021-06-30] MEDS: LORazepam 1 MG TABLET PO ONE (03:28)
--- NOTE | 2021-06-30 03:31 | RAD ---
Chest radiograph 06/30/2021 3:17 AM INDICATION: Chest pain COMPARISON: 06/29/2021 TECHNIQUE: Frontal and lateral views of the chest are provided. FINDINGS: The cardiomediastinal silhouette is within normal limits. There are no pleural effusions. There is no pulmonary vascular congestion. There is no pneumothorax. The lungs are clear. No significant osseous abnormality is identified. IMPRESSION: No acute cardiopulmonary process. Electronically signed by: Delia Bond MD (06/30/2021 3:29 AM) [facility]
[2021-06-30 04:04] LABS: BASO % 1 % (0-3); EOS # 0.1 x10^3/uL (0.0-0.7); EOS % 2 % (0-3); LYMPH # 1.4 x10^3/uL (1.0-4.8); LYMPH % 21 % (24-48); MEAN CORPUSCULAR HEMOGLOBIN 26 pg (25-35); MEAN CORPUSCULAR HGB CONC 33 g/dL (31-37); MEAN CORPUSCULAR VOLUME 80 fL (79-100); MONO # 0.4 x10^3/uL (0.0-1.1); MONO % 6 % (0-9); NEUT # 4.7 x10^3uL (1.8-7.7); NEUT % 71 % (31-73); PLATELET COUNT 276 x10^3/uL (140-400); RED BLOOD COUNT 5.02 x10^6/uL (3.50-5.40); WHITE BLOOD COUNT 6.6 x10^3/uL (4.0-11.0)
[2021-06-30 04:13] LABS: CALCIUM 9.4 mg/dL (8.5-10.1); CREATININE 0.7 mg/dL (0.6-1.0); GFR 122.4; POTASSIUM 3.5 mmol/L (3.5-5.1)
[2021-06-30 04:14] LABS: BILIRUBIN,URINE SMALL (NEG); CLARITY,URINE HAZY; COLOR,URINE YELLOW; GLUCOSE,URINE NEG (NEG); NITRITE,URINE NEG (NEG); UROBILINOGEN,URINE 0.2 mg/dL (0.2 mg/dL)
[2021-06-30 04:15] LABS: BACTERIA,URINE FEW /HPF (0-FEW); RBC,URINE 20-40 /HPF (0-2); SQUAMOUS EPITHELIAL CELL,UR OCC /LPF; WBC,URINE 20-40 /HPF (0-4)
[2021-06-30 04:22] LABS: MICROCYTOSIS SLIGHT; PLT ESTIMATE ADEQUATE (ADEQUATE); POIKILOCYTOSIS SLIGHT
[2021-06-30 04:24] LABS: BARBITURATES NEG (NEG); BENZODIAZEPINES POS (NEG); CANNABINOIDS NEG (NEG); COCAINE NEG (NEG); METHADONE NEG (NEG); OPIATES NEG (NEG); PHENCYCLIDINE NEG (NEG)
[2021-06-30 04:32] LABS: AMPHETAMINE/METHAMPHETAMINE NEG (NEG)
[2021-06-30] MEDS: ENOXAPARIN 40 MG/0.4 ML SYRINGE. SQ ONE (04:45)
[2021-06-30] MEDS ORDERED: CONTRAST GIVEN. MC PRN (04:45)
[2021-06-30] MEDS: IOHEXOL 350 MG/ML 100 ML VIAL. IV ONE (04:52)
--- NOTE | 2021-06-30 05:12 | RAD ---
PQRS Compliance Statement: One or more of the following individualized dose reduction techniques were utilized for this examinat ion: 1. Automated exposure control 2. Adjustment of the mA and/or kV according to patient size 3. Use of iterative reconstruction technique CTA CHEST 06/30/2021 4:[address] angiography chest with contrast 06/30/2021 4:40 AM INDICATION: Chest wall pain, dyspnea. Covid one month ago COMPARISON: None available TECHNIQUE: Axial CT images of the chest were obtained after the intravenous administration of nonioni c contrast. Coronal and sagittal reformats are provided. Maximum intensity projection images of the t horacic vasculature are provided. FINDINGS: The thyroid gland is normal in appearance. There are no pathologically enlarged axillary, mediastinal or hilar lymph nodes. The heart size is within normal limits. No significant pericardial effusion. T horacic aorta is normal in course and caliber. There is adequate opacification of the pulmonary arterial system. There there are no filling defects within the pulmonary arterial system to suggest acute or chronic pulmonary embolus. There are no suspicious solid noncalcified pulmonary nodules. There are no pulmonary infiltrates. The re are no pleural effusions. No pulmonary vascular congestion or pneumothorax. Visualized portions of the upper abdomen are within normal limits. No suspicious osseous lesions are visualized. IMPRESSION: There is no evidence for acute or chronic pulmonary embolism. Electronically signed by: Delia Bond MD (06/30/2021 5:10 AM) [facility]
[2021-06-30 05:30] VITALS: BP 102/54
--- NOTE | 2021-06-30 07:45 | EKG ---
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
== END 2021-06-30 05:38 | disposition home or self-care (01) ==
LOC: ER 02:20
DX: F41.9 Anxiety disorder, unspecified (principal); R07.89 Other chest pain
CPT/HCPCS: 36415; 71046; 71275; 80048; 80307; 81001; 81025; 84484; 85025; 85379; 87086; 93005; 96372; 99285; J1650; Q9967

== ENCOUNTER 2021-07-07 22:30 | Emergency (ER) | payer OTHER ==
[~2021-07-07] VITALS: Ht 165.1 cm; Wt 49.9 kg
--- NOTE | 2021-07-07 22:39 | PHYS DOC ---
Past History Past Medical History: Anxiety Additional Past Medical Histor: covid last month Past Surgical History: No Surgical History Smoking: Non-smoker Alcohol Use: None Drug Use: None Adult General HPI HPI Patient is a 25-year-old female presenting via EMS for anxiety. Reports she recently delivered a healthy baby via spontaneous vaginal delivery in the end of March 2021 and has been suffering from depression. Admits increased life stressors although she does cite that she has good family involvement and she lives at home with mother, sibling and father of her child. She states she is not in any pain, is not in danger or fears for her health at home, no active SI or HI. States she has history of anxiety for which she is prescribed hydroxyzine, states she really took 1 of these prior to arrival which did not help her symptoms prompting her to call EMS. She is scheduled to start seeing a therapist later in June at [facility]. She has no prior hospitalizations to inpatient psychiatric facilities. Denies any alcohol, tobacco or illicit drug use Review of Systems Review of Systems Fourteen body systems of review of systems have been reviewed. See HPI for pertinent positives and negative responses, other palm all other systems are negative, non-pertinent or non-contributory Allergies Allergies Allergies Coded Allergies Type Severity Reaction Last Updated Verified No Known Drug Allergies 03/10/21 No Physical Exam Physical Exam Constitutional: Age-appropriate, appears nervous, no acute distress, nontoxic in appearance HENT: Normocephalic, atraumatic, bilateral external ears normal, oropharynx moist, no oral exudates, nose normal. Eyes: PERRLA, EOMI, conjunctiva normal, no discharge. Neck: Normal range of motion, no tenderness, supple, no stridor. Cardiovascular: Heart rate regular, sinus rhythm, no murmurs rubs or gallops Lungs & Thorax: Bilateral breath sounds clear to auscultation Abdomen: Bowel sounds normal, soft, no tenderness, no masses, no pulsatile masses. Nonsurgical abdomen, no peritoneal signs Skin: Warm, dry, no erythema, no rash. Back: No tenderness, no CVA tenderness. Extremities: No tenderness, no cyanosis, no clubbing, ROM intact, no edema. Neurologic: Alert and oriented X 3, grossly normal motor & sensory function, no focal deficits noted. Psychologic: Withdrawn affect, depressed mood Current Patient Data Vital Signs Vital Signs Date Time Temp Pulse Resp B/P (MAP) Pulse Ox O2 Delivery O2 Flow Rate FiO2 07/07/21 22:30 98.1 103 18 125/79 (94) 98 Room Air Vital Signs Date Time Temp Pulse Resp B/P (MAP) Pulse Ox O2 Delivery O2 Flow Rate FiO2 07/07/21 22:30 98.1 103 18 125/79 (94) 98 Room Air EKG EKG [] Radiology/Procedures Radiology/Procedures [] Heart Score C/O Chest Pain: No Risk Factors: Risk Factors: DM, Current or recent (<one month) smoker, HTN, HLP, family history of CAD, obesity. Risk Scores: Risk Factors: DM, Current or recent (<one month) smoker, HTN, HLP, family history of CAD, obesity. Course & Med Decision Making Course & Med Decision Making ABCs unremarkable No active SI/HI. Attempted p.o. Ativan but patient deferred stating she cannot take tablets and so, IM Ativan administered with improvement in acute anxiety. Patient reevaluated and more calm, continues to deny SI/HI but just wants to talk about resources and get more help regarding BH Patient evaluated by qualified mental health professional who reviewed any appropriate supporting documentation and previous available medical records and feels patient does not meet criteria for admission to a mental health facility. I agree with this assessment Extensive education, local resources and safety plan specific for patient created while in ER. Patient demonstrated verbal understanding of all resources and information given I discussed potential need for further diagnostic work-up in ER setting but patient deferred and voiced that she felt better and is tired from recent hydroxyzine and Ativan administration and would like to go home. Dragon Disclaimer Dragon Disclaimer This electronic medical record was generated, in whole or in part, using a voice recognition dictation system. Departure Departure: Impression: Primary Impression: Anxiety Disposition: HOME / SELF CARE / HOMELESS Condition: STABLE Referrals: COREY LOBO (PCP) Additional Instructions: You were seen in the ED for evaluation of anxiety. Anxiety is a serious medical condition with unfortunate effects on daily living. You should utilize the Behavior Health resources for further management of your symptoms. Please follow safety plan and resources given to you by behavioral health specialist that you saw in ER setting. If any concerning signs or symptoms present prior to outpatient follow-up please do not hesitate to come back for repeat evaluation EMERALD SEGUNDO DO Jul 07, 2021 22:39
[2021-07-08 01:45] VITALS: BP 112/58
== END 2021-07-08 02:19 | disposition home or self-care (01) ==
LOC: ER 22:30
DX: F41.9 Anxiety disorder, unspecified (principal)
CPT/HCPCS: 96372; 99283; J2060

== ENCOUNTER 2021-07-09 13:16 | Emergency (ER) | payer OTHER ==
[~2021-07-09] VITALS: Ht 165.1 cm; Wt 49.9 kg
[2021-07-09 14:20] VITALS: BP 117/71
--- NOTE | 2021-07-09 14:27 | RAD ---
Study: XR CHEST 1V Indication: Pain. Comparison: 06/30/2021 Findings: The cardiomediastinal silhouette and paco are within normal limits. No localized airspace opacity, pl eural effusion or pneumothorax. Impression: No acute radiographic abnormality of the chest. No relevant change from the 06/30/2021 comparison. Electronically signed by: LIS BRUNSON MD (07/09/2021 2:24 PM) [facility] [place]
--- NOTE | 2021-07-09 14:27 | PHYS DOC ---
Past History Past Medical History: Anxiety Additional Past Medical Histor: covid last month (KELLE DUMONT SOCCER PLAYER) Past Surgical History: No Surgical History (KELLE DUMONT SOCCER PLAYER) Smoking: Non-smoker Alcohol Use: None Drug Use: None (KELLE DUMONT SOCCER PLAYER) Adult General Chief Complaint Chief Complaint: ANXIETY/PANIC ATTACK HPI HPI Patient is a 25-year-old female patient with history of anxiety who presents to the ED today complaining of chest pain, patient states symptoms began prior to coming to the ED. Arrives in the ED chest pain. She states when she had the chest pain it was probably 5 out of 10, patient points at her sternum stating that is where the pain was. She describes the pain as sharp and states it feels better when she popped her chest. Denies any chance she is , she states she had a baby 2 months, denies any recent hospitalizations, denies any long air or car rides. Denies any personal family history of PEs or DVTs. Denies any unilateral leg pain. She states she was hydroxyzine for anxiety but did not take it. Denies any SI or HI (KELLE DUMONT SOCCER PLAYER) Review of Systems Review of Systems Constitutional: Denies fever or chills [] Eyes: Denies change in visual acuity, redness, or eye pain [] HENT: Denies nasal congestion or sore throat [] Respiratory: Denies cough or shortness of breath [] Cardiovascular: Reports chest pain [] GI: Denies abdominal pain, nausea, vomiting, bloody stools or diarrhea [] : Denies dysuria or hematuria [] Musculoskeletal: Denies back pain or joint pain [] Integument: Denies rash or skin lesions [] Neurologic: Denies headache, focal weakness or sensory changes [] All other systems were reviewed and found to be within normal limits, except as documented in this note. (KELLE DUMONT SOCCER PLAYER) Allergies Allergies Allergies Coded Allergies Type Severity Reaction Last Updated Verified No Known Drug Allergies 03/10/21 No (KELLE DUMONT SOCCER PLAYER) Physical Exam Physical Exam Constitutional: Well developed, well nourished, no acute distress, non-toxic appearance. [] HENT: Normocephalic, atraumatic, bilateral external ears normal, oropharynx moist, no oral exudates, nose normal. [] Eyes: PERRLA, EOMI, conjunctiva normal, no discharge. [] Neck: Normal range of motion, no tenderness, supple, no stridor. [] Cardiovascular:Heart rate regular rhythm, no murmur [] Lungs & Thorax: Bilateral breath sounds clear to auscultation [] Abdomen: Bowel sounds normal, soft, no tenderness, no masses, no pulsatile masses. [] Skin: Warm, dry, no erythema, no rash. [] Back: No tenderness, no CVA tenderness. [] Extremities: No tenderness, no cyanosis, no clubbing, ROM intact, no edema. [] Neurologic: Alert and oriented X 3, normal motor function, normal sensory function, no focal deficits noted. [] Psychologic: Affect normal, judgement normal, mood normal. [] (KELLE DUMONT APRN) Current Patient Data Vital Signs Vital Signs Date Time Temp Pulse Resp B/P (MAP) Pulse Ox O2 Delivery O2 Flow Rate FiO2 07/09/21 13:22 98.5 80 18 121/74 (90) 100 Room Air (KELLE DUMONT SOCCER PLAYER) EKG EKG [address] Mae sinus rhythm HR 78 no STEMI[] (KELLE DUMONT APRN) Radiology/Procedures Radiology/Procedures [] (KELLE DUMONT APRN) Heart Score C/O Chest Pain: Yes HEART Score for Chest Pain: HEART Score for Chest Pain Response (Comments) Value History Slighlty/Non-Suspicious 0 ECG Normal 0 Age < 45 0 Risk Factors No Risk Factors 0 Troponin < Normal Limit 0 Total 0 Risk Factors: Risk Factors: DM, Current or recent (<one month) smoker, HTN, HLP, family history of CAD, obesity. Risk Scores: Risk Factors: DM, Current or recent (<one month) smoker, HTN, HLP, family history of CAD, obesity. (KELLE DUMONT SOCCER PLAYER) Course & Med Decision Making Course & Med Decision Making Pertinent Labs and Imaging studies reviewed. (See chart for details) This is a 25-year-old female patient with history of anxiety presenting today with chest pain that began prior to coming to the ED. Patient denies any pain on arrival to the ED. Of note this patient has been seen in the ED multiple times for chest pain or anxiety. For the month of June this is her fourth visit in the ED. She has had cardiac work-up including CTA chest on June 30, 2021 which was negative. She has been evaluated by the [facility] team and given resources. She states she has follow-up for her anxiety She also states she has good family support. She denies any suicidal homicidal ideations. Considering her EKG is normal. Her chest x-ray which she requested is negative. PERC 0, Wells score is low risk. She was discharged home (KELLE DUMONT APRN) Dragon Disclaimer Dragon Disclaimer This electronic medical record was generated, in whole or in part, using a voice recognition dictation system. (KELLE DUMONT APRN) PERC Rule for PE PERC Rule for PE Response (Comments) Value Age > 50: No 0 HR > 100: No 0 Sa02 on room air <95%: No 0 Unilateral leg swelling: No 0 Hemoptysis: No 0 Recent surgery or trauma: No 0 Prior PE or DVT: No 0 Hormone use: No 0 Total 0 Attending Co-Sign The patient was seen and interviewed as well as examined at the bedside. The chart was reviewed. The case was discussed. Agree with the plan of care. (CHRISTIANO MAE DO) Departure Departure: Impression: Primary Impression: Chest pain Disposition: HOME / SELF CARE / HOMELESS Condition: STABLE Referrals: COREY LOBO (PCP) follow up in one week with your doctor Patient Instructions: Chest Pain (Nonspecific) Additional Instructions: You were evaluated in the emergency room for chest pain. We highly recommend you follow-up with your own doctor. You can also follow-up with [facility] for anxiety. Consider taking hydroxyzine for your anxiety. Follow-up with your primary care doctor next week Problem Qualifiers Primary Impression: Chest pain Chest pain type: unspecified Qualified Codes: R07.9 - Chest pain, unspecified KELLE DUMONT APRN Jul 09, 2021 14:27 CHRISTIANO MAE DO Jul 09, 2021 17:57
--- NOTE | 2021-07-09 15:31 | EKG ---
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
== END 2021-07-09 14:48 | disposition home or self-care (01) ==
LOC: ER 13:16
DX: R07.89 Other chest pain (principal); F41.9 Anxiety disorder, unspecified
CPT/HCPCS: 71045; 93005; 99283-25

== ENCOUNTER 2021-07-17 10:04 | Emergency (ER) | payer OTHER ==
[~2021-07-17] VITALS: Ht 165.1 cm; Wt 46.5 kg
--- NOTE | 2021-07-17 11:07 | PHYS DOC ---
Past History Past Medical History: Anxiety Additional Past Medical Histor: covid last month (ALFRED DUBOSE APRN) Past Surgical History: No Surgical History (ALFRED DUBOSE APRN) Smoking: Non-smoker Alcohol Use: None Drug Use: None (ALFRED DUBOSE APRN) General Adult EDM: Chief Complaint: FATIGUE HPI: HPI: Patient is a 25-year-old female that presents today via [facility] with fatigue. Patient states that she has not been out of bed all week, that she has been having incontinence due to her fatigue, and has not been able to take care of her children over the last week due to fatigue. Also noted was the fact that this is her fifth emergency department visit this month for anxiety, chest pain, or rapid heart rate. Patient states that approximately 1 month ago that she had Covid, she also has had some depression for which she was supposed to see a therapist for yesterday but could not make the appointment due to transportation issues patient has not rescheduled that appointment as well. Per EMS patient was on the phone texting and talking on the phone the entire ride to the hospital, EMS providers states that patient was very vague in her complaints and was not willing to talk with them very much. (ALFRED DUBOSE APRN) Review of Systems: Review of Systems: Constitutional: Denies fever or chills Eyes: Denies change in visual acuity HENT: Denies nasal congestion or sore throat Respiratory: shortness of breath Cardiovascular: Denies chest pain or edema GI: Denies abdominal pain, nausea, vomiting, bloody stools or diarrhea : Denies dysuria Musculoskeletal: Denies back pain or joint pain Integument: Denies rash Neurologic: Generalized weakness fatigue Endocrine: Denies polyuria or polydipsia Lymphatic: Denies swollen glands Psychiatric: depression or anxiety (ALFRED DUBOSE APRN) Allergies: Allergies: Allergies Coded Allergies Type Severity Reaction Last Updated Verified No Known Drug Allergies 07/17/21 No (ALFRED DUBOSE APRN) Physical Exam: PE: Constitutional: Young female somewhat unkept stains noted on her pants she does have her earbuds in phone has been ringing constantly since I was in the room for evaluation HENT: Normocephalic, atraumatic, bilateral external ears normal, oropharynx moist, no oral exudates, nose normal. [] Eyes: PERRLA, EOMI, conjunctiva normal, no discharge. [] Neck: Normal range of motion, no tenderness, supple, no stridor. [] Cardiovascular:Heart rate regular rhythm, no murmur [] Lungs & Thorax: Bilateral breath sounds clear to auscultation [] Abdomen: Bowel sounds normal, soft, no tenderness, no masses, no pulsatile masses. [] Skin: Warm, dry, no erythema, no rash. [] Back: No tenderness, no CVA tenderness. [] Extremities: No tenderness, no cyanosis, no clubbing, ROM intact, no edema. [] Neurologic: Alert and oriented X 3, normal motor function, normal sensory function, no focal deficits noted. [] Psychologic: Affect is flat patient makes very little eye contact with this provider while doing my examination and HPI (ALFRED DUBOSE APRN) Current Patient Data: Vital Signs: Vital Signs Date Time Temp Pulse Resp B/P (MAP) Pulse Ox O2 Delivery O2 Flow Rate FiO2 07/17/21 10:45 98.3 87 24 130/76 (94) 99 Room Air (ALFRED DUBOSE APRN) EKG: EKG: [] (ALFRED DUBOSE APRN) Radiology/Procedures: Radiology/Procedures: [] (ALFRED DUBOSE APRN) Heart Score: C/O Chest Pain: N/A Risk Factors: Risk Factors: DM, Current or recent (<one month) smoker, HTN, HLP, family history of CAD, obesity. Risk Scores: Score 0 - 3: 2.5% MACE over next 6 weeks - Discharge Home Score 4 - 6: 20.3% MACE over next 6 weeks - Admit for Clinical Observation Score 7 - 10: 72.7% MACE over next 6 weeks - Early Invasive Strategies (ALFRED DUBOSE APRN) Course & Med Decision Making: Course & Med Decision Making Pertinent Labs and Imaging studies reviewed. (See chart for details) Reviewed patient's chart from the 6 previous visits since June 27, patient has had a complaints of fatigue and weakness at those times as well, ruled out PE due to PERC rule. 1120 spoke to Alise with the PAT and spoke to her about this patient she states to order labs including a rapid Covid and she will come and evaluate the patient for depression and depression] PAT here to evaluate patient, she spoke to patient at length patient states that she is on disability for a medical issue also her baby's father is also on disability as is other members of the household. Patient just recently moved to the area does not have any resources currently she is currently on [place] Medicaid patient was given resources for WIC, food pantries, and other pediatric resources as well. Patient called [facility] psychiatric team while PAT member was there and rescheduled her appointment for August 17. Patient will be discharged home to follow-up with the resources that were given, patient currently is not homicidal or suicidal. Patient is agreeable to plan of care. Patient's urine does show a cystitis and will treat patient with Macrobid for that, patient informed that her potassium was on the low side patient states she does not eat real food she only eats mashed potatoes and chips patient was informed to get a multivitamin while at the pharmacy and since she does not swallow pills either gummy or chewable would be sufficient. Patient is agreeable to plan (ALFRED DUBOSE APRN) Dragon Disclaimer: Dragon Disclaimer: This electronic medical record was generated, in whole or in part, using a voice recognition dictation system. (ALFRED DUBOSE APRN) Attending Co-Sign The patient was seen and interviewed as well as examined at the bedside. The chart was reviewed. The case was discussed. Agree with the plan of care. (CHRISTIANO MAE DO) Departure Departure: Impression: Primary Impression: Cystitis Additional Impression: Fatigue Qualified Codes: R53.83 - Other fatigue Disposition: HOME / SELF CARE / HOMELESS Condition: STABLE Referrals: COREY LOBO (PCP) Patient Instructions: Iron-Rich Diet, Urinary Tract Infection Additional Instructions: Take antibiotics as prescribed for the next 5 days for urinary tract infection Start an [id number] multivitamin to help with energy levels Eat a well-balanced meal of fruits vegetables and proteins, since your potassium was low please eat foods high in potassium Follow-up with the necessary resources that were given to you today including keeping your appointment the [facility] psychiatric on August 17 Scripts Nitrofurantoin Monohyd/M-Cryst (MACROBID 100 MG CAPSULE) 100 Mg Capsule 100 CAP PO BID for UTI for 5 Days, #10 CAP Prov: ALFRED DUBOSE APRN 07/17/21 ALFRED DUBOSE APRN Jul 17, 2021 11:07 CHRISTIANO MAE DO Jul 18, 2021 06:55
--- NOTE | 2021-07-17 11:45 | EKG ---
[address] [address] Test Date: 2021-07-17 Test Time: 11:01:04 Pat Name: ABRAHAM FULLER Department: Room: Gender: F Enroute Controller: : 1995 Requested By: ALFRED DUBOSE Order Number: [id number] Reading MD: Cain May Measurements Intervals [place] Rate: 85 P: 58 MT: 132 QRS: 43 QRSD: 98 T: 22 QT: 380 QTc: 458 Interpretive Statements SINUS RHYTHM INCOMPLETE RIGHT BUNDLE BRANCH BLOCK Electronically Signed On 07-19-2021 7:23:47 ARRT TECHNOLOGIST by Cain May
[2021-07-17 12:02] LABS: BASO # 0.1 x10^3/uL (0.0-0.2); BASO % 1 % (0-3); EOS # 0.3 x10^3/uL (0.0-0.7); EOS % 4 % (0-3); HEMATOCRIT 42.3 % (36.0-47.0); HEMOGLOBIN 14.1 g/dL (12.0-15.5); LYMPH # 2.1 x10^3/uL (1.0-4.8); LYMPH % 26 % (24-48); MEAN CORPUSCULAR HEMOGLOBIN 27 pg (25-35); MEAN CORPUSCULAR HGB CONC 33 g/dL (31-37); MEAN CORPUSCULAR VOLUME 80 fL (79-100); MONO # 0.3 x10^3/uL (0.0-1.1); MONO % 4 % (0-9); NEUT # 5.4 x10^3uL (1.8-7.7); NEUT % 66 % (31-73); PLATELET COUNT 371 x10^3/uL (140-400); RED BLOOD COUNT 5.25 x10^6/uL (3.50-5.40); RED CELL DISTRIBUTION WIDTH 21.1 % (11.5-14.5); WHITE BLOOD COUNT 8.2 x10^3/uL (4.0-11.0)
[2021-07-17 12:06] LABS: BARBITURATES NEG (NEG); BENZODIAZEPINES NEG (NEG); CANNABINOIDS NEG (NEG); COCAINE NEG (NEG); METHADONE NEG (NEG); OPIATES NEG (NEG); PHENCYCLIDINE NEG (NEG)
[2021-07-17 12:06] LABS: CALCIUM 9.4 mg/dL (8.5-10.1); CREATININE 0.8 mg/dL (0.6-1.0); GFR 104.9
[2021-07-17 12:08] LABS: AMPHETAMINE/METHAMPHETAMINE NEG (NEG)
[2021-07-17 12:20] LABS: BILIRUBIN,URINE SMALL (NEG); CLARITY,URINE HAZY; COLOR,URINE AMBER; GLUCOSE,URINE NEG (NEG)
[2021-07-17 12:21] LABS: AMORPHOUS SEDIMENT,UR PRESENT /HPF; BACTERIA,URINE FEW /HPF (0-FEW); HYALINE CASTS, URINE OCC /HPF; NITRITE,URINE NEG (NEG); SQUAMOUS EPITHELIAL CELL,UR MOD /LPF; UROBILINOGEN,URINE 0.2 mg/dL (0.2 mg/dL)
[2021-07-17 12:22] LABS: ACETAMIN < 2.0 mcg/mL (10-30); ETHANOL < 10 mg/dL (0-10); SALIC 0.5 mg/dL (2.8-20.0)
[2021-07-17 12:59] LABS: PLT ESTIMATE ADEQUATE (ADEQUATE)
[2021-07-17 13:00] LABS: ACANTHOCYTES FEW; ANISOCYTOSIS MOD; MICROCYTOSIS SLIGHT; POIKILOCYTOSIS MOD
[2021-07-17] MEDS ORDERED: NITR100C62 PO (15:43)
[2021-07-17 15:50] VITALS: BP 120/76
== END 2021-07-17 15:55 | disposition home or self-care (01) ==
LOC: ER 10:04
DX: N30.90 Cystitis, unspecified without hematuria (principal); R53.83 Other fatigue
CPT/HCPCS: 36415; 80048; 80307; 80329; 81001; 81025; 85025; 93005; 99285; G0480

== ENCOUNTER 2021-08-03 05:37 | Emergency (ER) | payer OTHER ==
[~2021-08-03] VITALS: Ht 165.1 cm; Wt 46.5 kg
[~2021-08-03 05:37] MED LIST changes: +NITR100C62 PO
--- NOTE | 2021-08-03 06:04 | EKG ---
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
--- NOTE | 2021-08-03 06:16 | PHYS DOC ---
Past History Past Medical History: Anxiety Additional Past Medical Histor: covid last month Past Surgical History: No Surgical History Smoking: Non-smoker Alcohol Use: None Drug Use: None General Adult EDM: Chief Complaint: Chest pain HPI: HPI: 25-year-old female presents with chest pain. The patient has been having a central chest discomfort which she describes as a pressure sensation since yesterday. It is not necessarily worse this morning than yesterday. She denies shortness of breath or diaphoresis. She states that she also feels like she is dehydrated. Patient's only medical history is anxiety. She has no other complaints at this time. Review of Systems: Review of Systems: Constitutional: Denies fever or chills Eyes: Denies change in visual acuity HENT: Denies nasal congestion or sore throat Respiratory: Denies cough or shortness of breath Cardiovascular: Chest pain GI: Denies abdominal pain, nausea, vomiting, bloody stools or diarrhea : Denies dysuria Musculoskeletal: Denies back pain or joint pain Integument: Denies rash Neurologic: Denies headache, focal weakness or sensory changes Endocrine: Denies polyuria or polydipsia Lymphatic: Denies swollen glands Psychiatric: Denies depression or anxiety Allergies: Allergies: Allergies Coded Allergies Type Severity Reaction Last Updated Verified No Known Drug Allergies 08/03/21 No Physical Exam: PE: Constitutional: Well developed, well nourished, thin, no acute distress, non- toxic appearance. [] HENT: Normocephalic, atraumatic, bilateral external ears normal, oropharynx very dry, no oral exudates, nose normal. [] Eyes: PERRLA, EOMI, conjunctiva normal, no discharge. [] Neck: Normal range of motion, no tenderness, supple, no stridor. [] Cardiovascular: Heart rate 94, regular rhythm, no murmur [] Lungs & Thorax: Bilateral breath sounds clear to auscultation [] Abdomen: Bowel sounds normal, soft, no tenderness, no masses, no pulsatile masses. [] Skin: Warm, dry, no erythema, no rash. [] Back: No tenderness, no CVA tenderness. [] Extremities: No tenderness, no cyanosis, no clubbing, ROM intact, no edema. [] Neurologic: Alert and oriented X 3, normal motor function, normal sensory function, no focal deficits noted. [] Psychologic: Affect normal, judgement normal, mood anxious. [] Current Patient Data: Vital Signs: Vital Signs Date Time Temp Pulse Resp B/P (MAP) Pulse Ox O2 Delivery O2 Flow Rate FiO2 08/03/21 05:40 98.2 91 18 132/82 (99) 95 EKG: EKG: Sinus rhythm, rate 94, normal axis, no ST elevation or depression. [] Radiology/Procedures: Radiology/Procedures: [] Impressions: My interpretation: No acute cardiopulmonary findings. Heart Score: C/O Chest Pain: Yes HEART Score for Chest Pain: HEART Score for Chest Pain Response (Comments) Value History Slighlty/Non-Suspicious 0 ECG Nonspecific Repolarizatio 1 Age < 45 0 Risk Factors No Risk Factors 0 Troponin < Normal Limit 0 Total 1 Risk Factors: Risk Factors: DM, Current or recent (<one month) smoker, HTN, HLP, family history of CAD, obesity. Risk Scores: Score 0 - 3: 2.5% MACE over next 6 weeks - Discharge Home Score 4 - 6: 20.3% MACE over next 6 weeks - Admit for Clinical Observation Score 7 - 10: 72.7% MACE over next 6 weeks - Early Invasive Strategies Course & Med Decision Making: Course & Med Decision Making Pertinent Labs and Imaging studies reviewed. (See chart for details) The patient's chest x-ray unremarkable. Her labs are unremarkable. Her troponin is negative. Her EKG is unremarkable. I suspect some of the patient's discomfort could be cramping due to her dehydration. She also told me she has had some left arm pain with no trauma. Again dehydration could be contributing. I have encouraged her to drink more water. She is stable for discharge at this time. [] Dragon Disclaimer: Dragon Disclaimer: This electronic medical record was generated, in whole or in part, using a voice recognition dictation system. Departure Departure: Impression: Primary Impression: Chest pain Qualified Codes: R07.9 - Chest pain, unspecified Additional Impression: Dehydration Disposition: HOME / SELF CARE / HOMELESS Condition: STABLE Referrals: COREY LOBO (PCP) Patient Instructions: Chest Pain (Nonspecific), [id number], Dehydration, Adult, [id number] CHRISTIANO MAE DO Aug 03, 2021 06:16
[2021-08-03 06:38] LABS: BASO # 0.1 x10^3/uL (0.0-0.2); BASO % 1 % (0-3); EOS # 0.3 x10^3/uL (0.0-0.7); EOS % 5 % (0-3); HEMATOCRIT 40.4 % (36.0-47.0); HEMOGLOBIN 13.4 g/dL (12.0-15.5); LYMPH # 1.5 x10^3/uL (1.0-4.8); LYMPH % 24 % (24-48); MEAN CORPUSCULAR HEMOGLOBIN 28 pg (25-35); MEAN CORPUSCULAR HGB CONC 33 g/dL (31-37); MEAN CORPUSCULAR VOLUME 83 fL (79-100); MONO # 0.4 x10^3/uL (0.0-1.1); MONO % 6 % (0-9); NEUT # 3.9 x10^3uL (1.8-7.7); NEUT % 64 % (31-73); PLATELET COUNT 309 x10^3/uL (140-400); RED BLOOD COUNT 4.88 x10^6/uL (3.50-5.40); RED CELL DISTRIBUTION WIDTH 19.6 % (11.5-14.5); WHITE BLOOD COUNT 6.2 x10^3/uL (4.0-11.0)
[2021-08-03 06:46] LABS: CREATININE 0.7 mg/dL (0.6-1.0); GFR 122.4
[2021-08-03 06:53] LABS: ALBUMIN 4.2 g/dL (3.4-5.0); ALBUMIN/GLOBULIN RATIO 1.3 (1.0-1.7); TOTAL BILIRUBIN 0.7 mg/dL (0.2-1.0); TOTAL PROTEIN 7.5 g/dL (6.4-8.2)
[2021-08-03] MEDS ORDERED: IV NORMAL SALINE 1,000ML 1,000 ML IV ONE (07:00)
[2021-08-03 07:49] VITALS: BP 104/60
[2021-08-03 08:09] LABS: BURR CELLS PRESENT; OVALOCYTES PRESENT; PLT ESTIMATE ADEQUATE (ADEQUATE); TARGET CELLS PRESENT
[2021-08-03 08:10] LABS: SCHISTOCYTES OCC
[2021-08-03 08:13] LABS: ANISOCYTOSIS PRESENT; MICROCYTOSIS PRESENT
--- NOTE | 2021-08-03 08:21 | RAD ---
XR CHEST 1V History: Reason: CP / Spl. Instructions: / History: Comparison: July 09, 2021 Findings: No consolidation or pleural effusion. Normal heart size. No pneumothorax. Impression: 1. No acute cardiopulmonary process. Electronically signed by: Ramiro Covington DO (08/03/2021 8:18 AM) [id number]
== END 2021-08-03 07:49 | disposition home or self-care (01) ==
LOC: ER 05:37
DX: R07.89 Other chest pain (principal); E86.0 Dehydration; M79.602 Pain in left arm; F41.9 Anxiety disorder, unspecified
CPT/HCPCS: 36415; 71045; 80053; 84484; 85025; 93005; 96360; 99285; J7030

== ENCOUNTER 2021-08-03 17:02 | Emergency (ER) | payer OTHER ==
[~2021-08-03] VITALS: Ht 165.1 cm; Wt 46.5 kg
[2021-08-03 17:05] VITALS: BP 132/93
--- NOTE | 2021-08-03 17:25 | PHYS DOC ---
Past History Past Medical History: Anxiety Additional Past Medical Histor: covid last month (BLAINE ALANIS APRN) Past Surgical History: No Surgical History (BLAINE ALANIS APRN) Smoking: Non-smoker Alcohol Use: None Drug Use: None (BLAINE ALANIS APRN) Adult General Chief Complaint Chief Complaint: ANXIETY/PANIC ATTACK HPI HPI Patient is a 25-year-old female presents to the emergency department complaining of an anxiety attack. Patient reports she was at home and started feeling her anxiety increase however was unsure if she should take her anxiety medication or not. 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 Patient denies homicidal or suicidal ideation. Patient denies other physical complaints or physical concerns. (BLAINE ALANIS APRN) Review of Systems Review of Systems 14 body systems of review of systems have been reviewed. See HPI for pertinent positives and negative responses, otherwise all other systems are negative, nonpertinent or noncontributory. Constitutional: Negative except as outlined in HPI above. Skin: Negative except as outlined in HPI above. Eyes: Negative except as outlined in HPI above. HENT: Negative except as outlined in HPI above. Respiratory: Negative except as outlined in HPI above. Cardiovascular: Negative except as outlined in HPI above. GI: Negative except as outlined in HPI above. : Negative except as outlined in HPI above. Musculoskeletal: Negative except as outlined in HPI above. Integument: Negative except as outlined in HPI above. Neurologic: Negative except as outlined in HPI above. Endocrine: Negative except as outlined in HPI above. Lymphatic: Negative except as outlined in HPI above. Psychiatric: Negative except as outlined in HPI above. (BLAINE ALANIS APRN) Allergies Allergies Allergies Coded Allergies Type Severity Reaction Last Updated Verified No Known Drug Allergies 08/03/21 No (BLAINE ALANIS APRN) Physical Exam Physical Exam Constitutional: Well developed, well nourished, no acute distress, non-toxic appearance. 25-year-old female appears anxious otherwise in no apparent distress. HENT: Normocephalic, atraumatic. Eyes: Conjunctiva normal, no discharge. Neck: Normal range of motion, no stridor. Cardiovascular: No cyanosis appreciated, distal cap refill less than 2 seconds. Lungs & Thorax: Patient is in no respiratory distress, no audible adventitious lung sounds appreciated. Abdomen: Nontender, no abnormalities noted. Skin: Warm, dry, no erythema, no rash. [] Back: No tenderness, no deformities. Extremities: No tenderness, no cyanosis, no clubbing, ROM intact, no edema. [] Neurologic: Alert and oriented X 3, normal motor function, normal sensory function, no focal deficits noted. Psychologic: Affect anxious, judgement normal, mood normal. (BLAINE ALANIS APRN) Current Patient Data Vital Signs Vital Signs Date Time Temp Pulse Resp B/P (MAP) Pulse Ox O2 Delivery O2 Flow Rate FiO2 08/03/21 17:05 98.0 76 18 132/93 (106) 100 Room Air (BLAINE ALANIS APRN) EKG EKG [] (BLAINE ALANIS APRN) Radiology/Procedures Radiology/Procedures [] (BLAINE ALANIS APRN) Heart Score C/O Chest Pain: No Risk Factors: Risk Factors: DM, Current or recent (<one month) smoker, HTN, HLP, family history of CAD, obesity. Risk Scores: Risk Factors: DM, Current or recent (<one month) smoker, HTN, HLP, family history of CAD, obesity. (BLAINE ALANIS APRN) Course & Med Decision Making Course & Med Decision Making Pertinent Labs and Imaging studies reviewed. (See chart for details) 25-year-old female, vital signs reviewed, presents emergency department concerning anxiety at home. Patient physical examination consistent with anxiety attack. Offered hydroxyzine for anxiety however patient reports she can only take it in liquid form. Patient reports she has her own hydroxyzine liquid with her. Discussed with patient to take her prescribed dosing. Discu ssed with patient strict follow-up with primary care physician tomorrow for reevaluation of her anxiety problems. Patient gave verbal understanding of and is amenable to ED discharge planning. Discussed with the patient all findings and diagnostic testing as well as the need to follow-up with their primary care provider for further evaluation and treatment or return to the ED if any new or worsening symptoms. Strict return precautions were also discussed at length, the patient voiced understanding and agreement with the discharge planning. The patient was nontoxic in appearance, in no apparent distress, and hemodynamically stable at the time of disposition. (BLAINE ALANIS APRN) Dragon Disclaimer Dragon Disclaimer This electronic medical record was generated, in whole or in part, using a voice recognition dictation system. (BLAINE ALANIS APRN) Attending Co-Sign The patient was seen and interviewed as well as examined at the bedside. The chart was reviewed. The case was discussed. Agree with the plan of care. (CHRISTIANO MAE DO) Departure Departure: Impression: Primary Impression: Anxiety Disposition: HOME / SELF CARE / HOMELESS Condition: GOOD Referrals: COREY LOBO (PCP) Patient Instructions: Anxiety and Panic Attacks Additional Instructions: You are seen today in the emergency department for anxiety attack. Please take your medication for your anxiety as directed. As we discussed please follow-up with your primary care physician Dr. Lobo, call tomorrow for an appointment. Thank you for visiting our Emergency Department. It was a pleasure taking care of you today in the emergency department and we appreciate you trusting us with your care. If any additional problems come up don't hesitate to return to visit us. Please follow up with your primary care provider so they can plan additional care if needed and know about the problem that you had. If symptoms worsen come back to the Emergency Department. Any concerning symptoms that start such as chest pain, shortness of air, weakness or numbness on one side of the body, running high fevers or any other concerning symptoms return to the ER. BLAINE ALANIS APRN Aug 03, 2021 17:25 CHRISTIANO MAE DO Aug 05, 2021 11:11
== END 2021-08-03 17:37 | disposition home or self-care (01) ==
LOC: ER 17:02
DX: F41.9 Anxiety disorder, unspecified (principal)
CPT/HCPCS: 99283

== ENCOUNTER 2021-08-07 08:51 | Emergency (ER) | payer OTHER ==
[~2021-08-07] VITALS: Ht 165.1 cm; Wt 46.5 kg
[2021-08-07] MEDS ORDERED: IV NORMAL SALINE 1,000ML 1,000 ML IV SCH (10:15)
--- NOTE | 2021-08-07 10:17 | PHYS DOC ---
Past History Past Medical History: Anxiety Additional Past Medical Histor: covid last month (ALEXIA DELAROSA APRN) Past Surgical History: No Surgical History (ALEXIA DELAROSA APRN) Smoking: Non-smoker Alcohol Use: None Drug Use: None (ALEXIA DELAROSA APRN) General Adult EDM: Chief Complaint: WEAKNESS/GENERALIZED HPI: HPI: Patient is a 25-year-old female who presents to the emergency department via EMS for numbness/tingling to her entire left side that started 45 minutes prior to arrival. Patient reports that she does not have a history of this occurring. She states that her numbness/tingling has improved since being in the emergency department but is still mildly present. Patient has a history of anxiety and panic attacks. Patient denies any weakness, speech changes, chest pain, shortness of breath, dizziness. (ALEXIA DELAROSA APRN) Review of Systems: Review of Systems: Respiratory: See HPI Cardiovascular: See HPI Neurologic: See HPI (ALEXIA DELAROSA APRN) Allergies: Allergies: Allergies Coded Allergies Type Severity Reaction Last Updated Verified No Known Drug Allergies 08/03/21 No (ALEXIA DELAROSA APRN) Physical Exam: PE: Constitutional: Well developed, well nourished, no acute distress, non-toxic appearance. [] HENT: Normocephalic, atraumatic, bilateral external ears normal, oropharynx moist, no oral exudates, nose normal. [] Eyes: PERRL, EOMI, conjunctiva normal, no discharge. [] Neck: Normal range of motion, no tenderness, supple, no nuchal rigidity, no stridor. [] Cardiovascular:Heart rate regular rhythm, no murmur [] Lungs & Thorax: Bilateral breath sounds clear to auscultation [] Abdomen: Bowel sounds normal, soft, no tenderness, no masses, no pulsatile masses. [] Skin: Warm, dry, no erythema, no rash. [] Back: Normal range of motion Extremities: No tenderness, no cyanosis, no clubbing, ROM intact, no edema. [] Neurologic: Alert and oriented X 3, normal motor function, normal sensory function, no focal deficits noted, patient is moving all 4 extremities equally and is texting on her cell phone. Patient has normal speech, no pronator drift, no limb ataxia. [] Psychologic: Affect normal, judgement normal, mood normal. [] (ALEXIA DELAROSA APRN) Current Patient Data: Vital Signs: Vital Signs Date Time Temp Pulse Resp B/P (MAP) Pulse Ox O2 Delivery O2 Flow Rate FiO2 08/07/21 08:52 98.3 99 16 101/76 (84) 98 Room Air (ALEXIA DELAROSA APRN) EKG: EKG: EKG performed by ER staff at 1035 shows sinus rhythm with a rate of 86, QTc 431, no STEMI read by Dr. Mae at 1037. [] (ALEXIA DELAROSA APRN) Radiology/Procedures: Radiology/Procedures: []PROCEDURE: CT HEAD WO CONTRAST EXAM: CT head without contrast INDICATION: Left-sided numbness COMPARISON: 05/01/2021 TECHNIQUE: Axial CT imaging through the head without intravenous contrast. Sagittal and coronal reformats were obtained. One or more of the following individualized dose reduction techniques were u tilized for this examination: 1. Automated exposure control 2. Adjustment of the mA and/or kV according to patient size 3. Use of iterative reconstruction technique. FINDINGS: The ventricles and sulci are normal. No intracranial hemorrhage, acute infarct, or mass lesion. Basal cisterns are clear. No midline shift. The skull and scalp are intact. Paranasal sinuses and mastoid air cells are clear. Globes and orbits are intact. IMPRESSION: No acute intracranial abnormality. Electronically signed by: Susana Wilson MD (08/07/2021 10:38 AM) [id number] DICTATED AND SIGNED BY: SUSANA WILSON MD DATE: 08/07/21 1036 CC: ALEXIA DELAROSA APRN; COREY LOBO MTH0 0 (ALEXIA DELAROSA APRN) Heart Score: C/O Chest Pain: No Risk Factors: Risk Factors: DM, Current or recent (<one month) smoker, HTN, HLP, family history of CAD, obesity. Risk Scores: Score 0 - 3: 2.5% MACE over next 6 weeks - Discharge Home Score 4 - 6: 20.3% MACE over next 6 weeks - Admit for Clinical Observation Score 7 - 10: 72.7% MACE over next 6 weeks - Early Invasive Strategies (ALEXIA DELARSOA APRN) Course & Med Decision Making: Course & Med Decision Making Pertinent Labs and Imaging studies reviewed. (See chart for details) [] Patient presents emergency department for tingling and numbness to the left side of her body. Symptoms started 45 minutes ago and have improved while in the emergency department. Work-up in the ER consisted of blood work, EKG, urinalysis and CT imaging of head. Patient's blood work is unremarkable. Her CT of her head shows no acute findings. She has no meningeal signs. Upon reassessment of patient, she reports that the numbness in her left side has resolved. It appears that patient had taken her hydroxyzine while in the ER. It is likely the patient's numbness to her left side is due to her anxiety and panic attacks. Patient has a history of being noncompliant with her anxiety medications. Patient advised to continue taking her anxiety medications as directed and she needs to follow-up with her primary care provider. I discussed with patient all findings and diagnostic testing as well as the need to follow- up with PCP for further evaluation and treatment or return to the ER if any new or worsening symptoms. Strict return precautions were also discussed at length. Patient voiced understanding and agreement with the plan. Patient is hem odynamically stable at the time of disposition. (ALEXIA DELAROSA APRN) Dragon Disclaimer: Dragon Disclaimer: This electronic medical record was generated, in whole or in part, using a voice recognition dictation system. (ALEXIA DELAROSA APRN) NIH Stroke Scale: NIH Stroke Scale Response (Comments) Value Level of Consciousness: 0 Alert/Responsive 0 LOC Questions: 0 Answers both correctly 0 LOC Commands: 0 Performs both tasks 0 Best Gaze: 0 Normal 0 Visual: 0 No visual loss 0 Facial Palsy: 0 Normal, symmetrical 0 Motor - Left Arm 0 No drift 0 Motor - Right Arm 0 No drift 0 Motor - Left Leg 0 No drift 0 Motor: Right Leg 0 No drift 0 Limb Ataxia: 0 Absent 0 Sensory: 1 Mid to moderate loss (l. sided arm and leg, equal sensation in face) 1 Best Language: 0 Normal 0 Dysathria: 0 Normal 0 Total 1 Attending Co-Sign The patient was seen and interviewed as well as examined at the bedside. The chart was reviewed. The case was discussed. Agree with the plan of care. (CHRISTIANO MAE DO) Departure Departure: Impression: Primary Impression: Paresthesia Disposition: HOME / SELF CARE / HOMELESS Condition: GOOD Referrals: COREY LOBO (PCP) Patient Instructions: Paresthesia Additional Instructions: You were seen in the emergency department today for numbness to your left arm and left leg. Clinic was performed that was unremarkable. We obtained a CT scan of your head that showed no acute findings. Stated that your numbness had resolved while in the ER. It is possible that your symptoms are due to anxiety. Please make sure that you are taking your anxiety medications as directed. Please follow-up with your primary care provider tomorrow regarding your ER visit. Please return to the emergency department if your symptoms resume or you develop dizziness, difficulty ambulating, speech changes, unilateral weakness, chest pain, shortness of breath, confusion, severe headache or any new or worsening symptoms. ALEXIA DELAROSA APRN Aug 07, 2021 10:17 CHRISTIANO MAE DO Aug 08, 2021 06:47
--- NOTE | 2021-08-07 10:40 | RAD ---
EXAM: CT head without contrast INDICATION: Left-sided numbness COMPARISON: 05/01/2021 TECHNIQUE: Axial CT imaging through the head without intravenous contrast. Sagittal and coronal refor mats were obtained. One or more of the following individualized dose reduction techniques were utilized for this examinat ion: 1. Automated exposure control 2. Adjustment of the mA and/or kV according to patient size 3. Use of iterative reconstruction technique. FINDINGS: The ventricles and sulci are normal. No intracranial hemorrhage, acute infarct, or mass lesion. Basal cisterns are clear. No midline shift. The skull and scalp are intact. Paranasal sinuses and mastoid air cells are clear. Globes and orbits are intact. IMPRESSION: No acute intracranial abnormality. Electronically signed by: Susana Wilson MD (08/07/2021 10:38 AM) [id number]
--- NOTE | 2021-08-07 10:47 | EKG ---
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
[2021-08-07 11:00] VITALS: BP 104/67
[2021-08-07 11:02] LABS: BASO # 0.1 x10^3/uL (0.0-0.2); BASO % 1 % (0-3); EOS # 0.2 x10^3/uL (0.0-0.7); EOS % 3 % (0-3); HEMATOCRIT 43.9 % (36.0-47.0); HEMOGLOBIN 14.7 g/dL (12.0-15.5); LYMPH # 1.4 x10^3/uL (1.0-4.8); LYMPH % 19 % (24-48); MEAN CORPUSCULAR HEMOGLOBIN 28 pg (25-35); MEAN CORPUSCULAR HGB CONC 34 g/dL (31-37); MEAN CORPUSCULAR VOLUME 83 fL (79-100); MONO # 0.3 x10^3/uL (0.0-1.1); MONO % 4 % (0-9); NEUT # 5.7 x10^3uL (1.8-7.7); NEUT % 75 % (31-73); PLATELET COUNT 339 x10^3/uL (140-400); RED BLOOD COUNT 5.31 x10^6/uL (3.50-5.40); RED CELL DISTRIBUTION WIDTH 17.7 % (11.5-14.5); WHITE BLOOD COUNT 7.6 x10^3/uL (4.0-11.0)
[2021-08-07 11:13] LABS: CALCIUM 9.7 mg/dL (8.5-10.1); CREATININE 0.7 mg/dL (0.6-1.0); GFR 122.4; POTASSIUM 3.6 mmol/L (3.5-5.1)
[2021-08-07 11:18] LABS: ALBUMIN 4.4 g/dL (3.4-5.0); ALBUMIN/GLOBULIN RATIO 1.1 (1.0-1.7); TOTAL BILIRUBIN 0.8 mg/dL (0.2-1.0); TOTAL PROTEIN 8.3 g/dL (6.4-8.2)
== END 2021-08-07 12:13 | disposition home or self-care (01) ==
LOC: ER 08:51
DX: R20.2 Paresthesia of skin (principal)
CPT/HCPCS: 36415; 70450; 80053; 84484; 85025; 93005; 99285-25

== ENCOUNTER 2021-08-08 20:03 | Emergency (ER) | payer OTHER ==
[~2021-08-08] VITALS: Ht 165.1 cm; Wt 46.5 kg
--- NOTE | 2021-08-08 20:26 | PHYS DOC ---
Past History Past Medical History: Anxiety Additional Past Medical Histor: covid last month (KELLE DUMONT Lizzette TOWEL SEWER) Past Surgical History: No Surgical History (KELLE DUMONT Lizzette TOWEL SEWER) Smoking: Non-smoker Alcohol Use: None Drug Use: None (KELLE DUMONT Lizzette TOWEL SEWER) Adult General Chief Complaint Chief Complaint: OTHER COMPLAINTS [facility] HPI Patient is a 25-year-old female patient presenting to the ED evaluated for chest tightness that begun this morning after, she stretched her chest muscles. Patient denies any fever, coughing, congestion. This morning patient's daughter was in the ED to be evaluated. Patient states she was at [facility] all day today waiting to be seen. (KELLE DUMONT TOWEL SEWER) Review of Systems Review of Systems Constitutional: Denies fever or chills [] Eyes: Denies change in visual acuity, redness, or eye pain [] HENT: Denies nasal congestion or sore throat [] Respiratory: Denies cough or shortness of breath [] Cardiovascular: Reports chest tightness. No additional information not addressed in HPI [] GI: Denies abdominal pain, nausea, vomiting, bloody stools or diarrhea [] : Denies dysuria or hematuria [] Musculoskeletal: Denies back pain or joint pain [] Integument: Denies rash or skin lesions [] Neurologic: Denies headache, focal weakness or sensory changes [] Endocrine: Denies polyuria or polydipsia [] All other systems were reviewed and found to be within normal limits, except as documented in this note. (KELLE DUMONT Lizzette TOWEL SEWER) Allergies Allergies Allergies Coded Allergies Type Severity Reaction Last Updated Verified No Known Drug Allergies 08/03/21 No (KELLE DUMONT Lizzette TOWEL SEWER) Physical Exam Physical Exam Constitutional: Well developed, well nourished, no acute distress, non-toxic appearance. [] HENT: Normocephalic, atraumatic, bilateral external ears normal, oropharynx moist, no oral exudates, nose normal. [] Eyes: PERRLA, EOMI, conjunctiva normal, no discharge. [] Neck: Normal range of motion, no tenderness, supple, no stridor. [] Cardiovascular:Heart rate regular rhythm, no murmur [] Lungs & Thorax: Bilateral breath sounds clear to auscultation [] Abdomen: Bowel sounds normal, soft, no tenderness, no masses, no pulsatile masses. [] Skin: Warm, dry, no erythema, no rash. [] Back: No tenderness, no CVA tenderness. [] Extremities: No tenderness, no cyanosis, no clubbing, ROM intact, no edema. [] Neurologic: Alert and oriented X 3, normal motor function, normal sensory function, no focal deficits noted. [] Psychologic: Affect normal, judgement normal, mood normal. [] (KELLE DUMONT APRN) Current Patient Data Vital Signs Vital Signs Date Time Temp Pulse Resp B/P (MAP) Pulse Ox O2 Delivery O2 Flow Rate FiO2 08/08/21 20:19 97.7 99 18 110/67 (81) 98 Room Air (KELLE DUMONT APRN) EKG EKG [] (KELLE DUMONT APRN) Radiology/Procedures Radiology/Procedures [] (KELLE DUMONT APRN) Heart Score C/O Chest Pain: N/A Risk Factors: Risk Factors: DM, Current or recent (<one month) smoker, HTN, HLP, family hist ory of CAD, obesity. Risk Scores: Risk Factors: DM, Current or recent (<one month) smoker, HTN, HLP, family history of CAD, obesity. (KELLE DUMONT APRN) Course & Med Decision Making Course & Med Decision Making Pertinent Labs and Imaging studies reviewed. (See chart for details) The second 5-year-old female patient presenting to the ED today with chest tightness that began after she stretched her chest muscles this morning. Patient is well-known to this ED for multiple complaints. She was reassured and discharged home. She has an appointment with her PCP on September 22. (KELLE DUMONT TOWEL SEWER) Course & Med Decision Making Did not see or evaluate patient. Did not discuss patient with MANDARIN TEACHER. Agree with MANDARIN TEACHER's work-up and disposition per note. (GENTRY CHAVEZ MD) Dragon Disclaimer Dragon Disclaimer This electronic medical record was generated, in whole or in part, using a voice recognition dictation system. (KELLE DUMONT APRN) Departure Departure: Impression: Primary Impression: Chest tightness Disposition: HOME / SELF CARE / HOMELESS Condition: STABLE Referrals: COREY LOBO (PCP) follow up next week Patient Instructions: Muscle Strain Additional Instructions: You were evaluated in the emergency room for chest tightness. We encourage you to follow-up with your primary care doctor next week. Take over the counter Tylenol or Motrin as needed for your symptoms. KELLE DUMONT APRN Aug 08, 2021 20:26 GENTRY CHAVEZ MD Aug 08, 2021 23:11
[2021-08-08 20:56] VITALS: BP 105/59
[2021-08-08] MEDS ORDERED: CYCLOBENZAPRINE 10 MG TABLET. PO ONE (21:00)
[2021-08-08] MEDS ORDERED: IBUPROFEN 600 MG TABLET. PO ONE (21:00)
== END 2021-08-08 21:03 | disposition home or self-care (01) ==
LOC: ER 20:03
DX: R07.89 Other chest pain (principal); F41.9 Anxiety disorder, unspecified
CPT/HCPCS: 99283

== ENCOUNTER 2021-09-02 08:10 | Emergency (ER) | payer OTHER ==
[~2021-09-02] VITALS: Ht 165.1 cm; Wt 46.5 kg
[2021-09-02 08:12] VITALS: BP 105/59
--- NOTE | 2021-09-02 09:27 | RAD ---
INDICATION: Reason: "bones poppin" / Spl. Instructions: IUD REMOVED OCT, PT SHIELDED WITH WRAP AND ST AND / History: COMPARISON: None. FINDINGS: Single view of chest obtained. No focal airspace consolidation or pulmonary edema. Cardiac silhouette is unremarkable. Mild scoliotic curvature the spine. IMPRESSION: * No focal airspace consolidation or edema. Electronically signed by: Juan Antonio Trevino MD (09/02/2021 9:25 AM) [id number]
--- NOTE | 2021-09-02 09:43 | EKG ---
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
[2021-09-02 09:44] LABS: AMPHETAMINE/METHAMPHETAMINE NEG (NEG); BARBITURATES NEG (NEG); BENZODIAZEPINES NEG (NEG); CANNABINOIDS NEG (NEG); COCAINE NEG (NEG); METHADONE NEG (NEG); OPIATES NEG (NEG); PHENCYCLIDINE NEG (NEG)
--- NOTE | 2021-09-02 10:02 | PHYS DOC ---
Past History Past Medical History: Anxiety Additional Past Medical Histor: covid last month Past Surgical History: No Surgical History Smoking: Non-smoker Alcohol Use: None Drug Use: None General Adult EDM: Chief Complaint: ANXIETY/PANIC ATTACK HPI: HPI: 25-year-old female past medical history of anxiety, presents the ED brought in by EMS with complaints of " the bones of my chest are popping for the past month." States any cough or deep breath exacerbates the symptoms. Has not taken anything for the pain. Was prescribed sertraline on August 13 for her anxiety, but has anxiety about starting this medication. Does report her anxiety has worsened. H/o covid one month ago-did not require hospitalization. Is not vaccinated for Covid. Denies any blunt chest wall injury/falls or mvc. No history of cocaine or methamphetamine use. States the outside of her chest hurts. No associated underlying chest pain/pressure/heaviness/tightness. Review of Systems: Review of Systems: Constitutional: Denies fever or chills Eyes: Denies change in visual acuity HENT: Denies nasal congestion or sore throat Respiratory: Denies hemoptysis or shortness of breath Cardiovascular: Denies syncope or edema GI: Denies abdominal pain, nausea, vomiting, bloody stools or diarrhea : Denies dysuria or vaginal bleeding Musculoskeletal: Denies back pain or joint pain Integument: Denies rash or diaphoresis Neurologic: Denies headache, focal weakness or sensory changes Endocrine: Denies polyuria or polydipsia Lymphatic: Denies swollen glands Psychiatric: Denies depression or anxiety Allergies: Allergies: Allergies Coded Allergies Type Severity Reaction Last Updated Verified No Known Drug Allergies 08/03/21 No Physical Exam: PE: Constitutional: Well developed, well nourished, no acute distress, non-toxic appearance, in no distress-I had to ask her to get off her phone for evaluation HENT: Normocephalic, atraumatic, Eyes: EOMI, conjunctiva normal, no discharge. Neck: Normal range of motion, supple, Cardiovascular: S1/2 present, regular rhythm-tachycardic on arrival, repeat heart rate is in normal sinus rhythm, reproducible chest wall pain over cartilages lining both sides of the sternum Lungs & Thorax: Speaking in full sentences, bilateral equal chest rise, no tachypnea or increased work of breathing Abdomen: soft, no tenderness, Skin: Warm, dry, no erythema, no rash. [] Extremities: No tenderness, no cyanosis, no unilateral lower extremity edema, very thin Neurologic: Alert and oriented X 3, normal motor function, normal sensory function, no focal deficits noted. [] Psychologic: Affect normal, judgement normal, mood normal-calm/does not appear anxiuous Current Patient Data: Labs: Laboratory Tests Test 09/02/21 08:56 09/02/21 09:01 Urine Opiates Screen Neg (NEG) Urine Methadone Screen Neg (NEG) Urine Barbiturates Neg (NEG) Urine Phencyclidine Screen Neg (NEG) Urine Amphetamine/Methamphetamine Neg (NEG) Urine Benzodiazepines Screen Neg (NEG) Urine Cocaine Screen Neg (NEG) Urine Cannabinoids Screen Neg (NEG) Urine Ethyl Alcohol Neg (NEG) POC Urine HCG, Qualitative hcg negative (Negative) Vital Signs: Vital Signs Date Time Temp Pulse Resp B/P (MAP) Pulse Ox O2 Delivery O2 Flow Rate FiO2 09/02/21 08:12 98.0 126 16 105/59 (74) 98 Room Air EKG: EKG: Sinus rhythm 72 bpm, no axis deviation, normal intervals, no T wave inversion, no ST elevation or ST depression Radiology/Procedures: Radiology/Procedures: []IMAGING REPORT Signed PATIENT: ABRAHAM FULLER ACCOUNT: [id number] : 1995 LOCATION: ER AGE: 25 SEX: F EXAM STATUS: REG ER ORD. PHYSICIAN: INA OLVERA DO REASON: "bones poppin" PROCEDURE: CHEST PA & LATERAL INDICATION: Reason: "bones poppin" / Spl. Instructions: IUD REMOVED OCT, PT SHIELDED WITH WRAP AND STAND / History: COMPARISON: None. FINDINGS: Single view of chest obtained. No focal airspace consolidation or pulmonary edema. Cardiac silhouette is unremarkable. Mild scoliotic curvature the spine. IMPRESSION: * No focal airspace consolidation or edema. Electronically signed by: Chang Richardson MD (09/02/2021 9:25 AM) [id number] DICTATED AND SIGNED BY: CHANG RICHARDSON MD DATE: 09/02/21 0924 CC: COREY LOBO; INA OLVERA DO ~MTH0 0 Heart Score: C/O Chest Pain: No Risk Factors: Risk Factors: DM, Current or recent (<one month) smoker, HTN, HLP, family history of CAD, obesity. Risk Scores: Score 0 - 3: 2.5% MACE over next 6 weeks - Discharge Home Score 4 - 6: 20.3% MACE over next 6 weeks - Admit for Clinical Observation Score 7 - 10: 72.7% MACE over next 6 weeks - Early Invasive Strategies Course & Med Decision Making: Course & Med Decision Making Pertinent Labs and Imaging studies reviewed. (See chart for details) Concern for chest wall discomfort after COVID-19 infection-symptoms are consistent with costochondritis. Patient, calm, in no distress and hemodynamically stable. Chest x-ray and EKG are unremarkable-no ischemia, trauma, or lung infiltrates. Patient has no underlying chest pain, back pain, shortness of breath, leg swelling or hemoptysis. Pulmonary are on the differential-low suspicion at this time. We will treat conservatively with [id number] lidocaine patches. Will discharge home with strict ED return precautions were given for hemoptysis, leg swelling, worsening chest pain or difficulties breathing. Encouraged urgent outpatient follow-up with PMD for reevaluation. Life-threatening processes were considered but are low suspicion at this time, given history, physical exam and ED workup. Pt was educated on all prescription medications and adverse effects. All patient's questions were answered and pt was stable at time of discharge. Life/limb-threatening differential includes but is not limited to, acute myocardial infarction, aortic dissection, congestive heart failure, esophageal injury including rupture, surgical abdomen, arrhythmia, cardiomyopathy, myocarditis, pericarditis, peptic ulcer disease, pneumomediastinum, pneumonia, pneumothorax, pulmonary embolus, unstable angina, rib fracture, contusion, pericardial tamponade or effusion, traumatic injury including mediastinal hemorrhage or hematoma, or pulmonary contusion. I have spoken with the patient and/or caregivers. I explained the patient's condition, diagnoses and treatment plan based on the information available to me at this time. I have answered the patient and/or caregiver's questions and addressed any concerns. The patient and/or caregivers have a good understanding of patient's diagnosis, condition and treatment plan as can be expected at this point. Vital signs have been stable. Patient's condition is stable and appropriate for discharge from the emergency department. Patient will pursue further outpatient evaluation with primary care physician or other designated or consulting physician as outlined in the discharge instructions. The patient and/or caregivers are agreeable to this plan of care and follow-up instructions have been explained in detail. The patient and/or caregivers have received these instructions in written form and have expressed an understanding of the discharge instructions. The patient and/or caregivers are aware that any significant change of condition or worsening of symptoms should prompt immediate return to this or the closest emergency department or call to 911Gabriela Christian Disclaimer: Anahi Disclaimer: This electronic medical record was generated, in whole or in part, using a voice recognition dictation system. Departure Departure: Impression: Primary Impression: Anxiety Additional Impression: Chest wall pain Disposition: HOME / SELF CARE / HOMELESS Condition: STABLE Referrals: COREY LOBO (PCP) Follow up with your pcp in 1-2 days or [facility] [phone] OR [facility]-Dr. Donnelly [phone] Patient Instructions: Anxiety and Panic Attacks, Costochondritis Additional Instructions: FOLLOW UP WITH PSYCHIATRY: FOR DEFINITIVE MANAGEMENT Dr. Nicholas Yeager Psychiatry Specialist [address], [place] [phone] EMERGENCY DEPARTMENT GENERAL DISCHARGE INSTRUCTIONS Thank you for coming to [facility] (ED) today and trusting us with you care. We trust that you had a positivie experience in our Emergency Department. If you wish to speak to the department management, you may call the director at [phone]. YOUR FOLLOW UP INSTRUCTIONS ARE FOLLOWS: 1. Do you have a private Doctor? If you do not have a private doctor, please ask for a resource list of physicians or clinics that may be able to assist you with follow up care. 2. The Emergency Physician has interpreted your x-rays. The X-Ray specialist will also review them. If there is a change in the findings, you will be notified in 48 hours when at all possible. 3. A lab test or culture has been done, your results will be reviewed and you will be notified if you need a change in treatment. ADDITIONAL INSTRUCTIONS AND INFORMATION: 1. Your care today has been supervised by a physician who is specially trained in emergency care. Many problems require more than one evaluation for a complete diagnosis and treatment. We recommend that you schedule your follow up appointment as recommended to ensure complete treatment of you illness or injury. If you are unable to obtain follow up care and continue to have a problem, or if your condition worsens, we recommend that you return to the ED. 2. We are not able to safely determine your condition over the phone nor are we able to give sound medical advice over the phone. For these safety reasons, if you call for medical advice we will ask you to come to the ED for further evaluation. 3. If you have any questions regarding these discharge instructions please call the ED at [phone]. SAFETY INFORMATION: In the interest of safety, wellness, and injury prevention; we encourage you to wear your sealbelt, if you smoke; quite smoking, and we encourage family to use a protective helmet for bicycling and other sporting events that present an increased risk for head injury. IF YOUR SYMPTOMS WORSEN OR NEW SYMPTOMS DEVELOP, OR YOU HAVE CONCERNS ABOUT YOUR CONDITION; OR IF YOUR CONDITION WORSENS WHILE YOU ARE WAITING FOR YOUR FOLLOW UP APPOINTMENT; EITHER CONTACT YOUR PRIMARY CARE DOCTOR, THE PHYSICIAN WHOSE NAME AND NUMBER YOU WERE GIVEN, OR RETURN TO THE ED IMMEDIATELY. Scripts Lidocaine (Lidocaine PATCH ) 1 Each Adh..patch 1 EACH TP DAILY for FOR LOCAL PAIN for 5 Days, #5 PATCH REMOVE AFTER 12 HOURS Prov: INA OLVERA DO 09/02/21 INA OLVERA DO Sep 02, 2021 10:02
[2021-09-02] MEDS ORDERED: LIDO700A21 TP (10:27)
== END 2021-09-02 10:38 | disposition home or self-care (01) ==
LOC: ER 08:10
DX: F41.9 Anxiety disorder, unspecified (principal); R07.89 Other chest pain
CPT/HCPCS: 36415; 71046; 80307; 81025; 93005; 99285

== ENCOUNTER 2021-09-09 14:36 | Emergency (ER) | payer OTHER ==
[~2021-09-09] VITALS: Ht 165.1 cm; Wt 46.5 kg
[~2021-09-09 14:36] MED LIST changes: +LIDO700A21 TP
[2021-09-09 15:40] VITALS: BP 105/59
--- NOTE | 2021-09-09 18:06 | RAD ---
PA chest. HISTORY: Chest tightness PA view was taken of the chest. Lungs are free of infiltrates. Heart is normal in size. There is no p leural effusion. Is been no significant change. IMPRESSION: 1. No acute infiltrates. Electronically signed by: Jamie Gresham MD (09/09/2021 6:04 PM) [facility]
--- NOTE | 2021-09-09 18:53 | PHYS DOC ---
Past History Past Medical History: Anxiety Additional Past Medical Histor: covid last month (BLAINE ALANIS APRN) Past Surgical History: No Surgical History (BLAINE ALANIS APRN) Smoking: Non-smoker Alcohol Use: None Drug Use: None (BLAINE ALANIS APRN) Adult General Chief Complaint Chief Complaint: ANXIETY/PANIC ATTACK HPI HPI Patient is a 25-year-old female who presents to the emergency department with a chief complaint of ongoing chest popping sensations that she states started on the first of the year of 2021. Patient reports she was seen here on 02 September for the same symptoms. Patient reports it has not gone away yet. Patient reports with any cough or deep breathing makes the symptoms worse. Patient reports her pain is a out of 10 when she deep breathes or coughs otherwise patient is unable to articulate a pain scale number at rest. Patient reports she thinks it might be her anxiety problems, was given a prescription sometime in July but is too scared to start taking it. Patient denies recent chest trauma. Patient denies receiving the COVID-19 virus or flu virus vaccination. Denies any history of cocaine or methamphetamine use. Reports she just wants to know what is wrong. Patient denies other physical complaints or physical complaints. (BLAINE ALANIS APRN) Review of Systems Review of Systems 14 body systems of review of systems have been reviewed. See HPI for pertinent positives and negative responses, otherwise all other systems are negative, nonpertinent or noncontributory. Constitutional: Negative except as outlined in HPI above. Skin: Negative except as outlined in HPI above. Eyes: Negative except as outlined in HPI above. HENT: Negative except as outlined in HPI above. Respiratory: Negative except as outlined in HPI above. Cardiovascular: Negative except as outlined in HPI above. GI: Negative except as outlined in HPI above. : Negative except as outlined in HPI above. Musculoskeletal: Negative except as outlined in HPI above. Integument: Negative except as outlined in HPI above. Neurologic: Negative except as outlined in HPI above. Endocrine: Negative except as outlined in HPI above. Lymphatic: Negative except as outlined in HPI above. Psychiatric: Negative except as outlined in HPI above. (BLAINE ALANIS APRN) Allergies Allergies Allergies Coded Allergies Type Severity Reaction Last Updated Verified No Known Drug Allergies 08/03/21 No (BLAINE ALANIS APRN) Physical Exam Physical Exam Constitutional: Well developed, well nourished, no acute distress, non-toxic appearance. 25-year-old female in no apparent distress. Patient has complaints of pain exceeds patient's physical appearance on examination. HENT: Normocephalic, atraumatic. Eyes: Conjunctiva normal, no discharge. Neck: Normal range of motion, no stridor. Cardiovascular: No cyanosis appreciated, distal cap refill less than 2 seconds. Heart sounds S1-S2, RRR. Lungs & Thorax: Patient is in no respiratory distress, no audible adventitious lung sounds appreciated. Lung sounds clear to auscultate all lung snell. Pain reproducible to anterior thorax to palpation. Abdomen: Nontender, no abnormalities noted. Skin: Warm, dry, no erythema, no rash. Back: No tenderness, no deformities. Extremities: No tenderness, no cyanosis, no clubbing, ROM intact, no edema. Neurologic: Alert and oriented X 3, normal motor function, normal sensory function, no focal deficits noted. Psychologic: Affect normal, judgement normal, mood normal. (BLAINE ALANIS APRN) Current Patient Data Vital Signs Vital Signs Date Time Temp Pulse Resp B/P (MAP) Pulse Ox O2 Delivery O2 Flow Rate FiO2 09/09/21 15:40 97.5 74 16 105/59 (74) 96 Room Air (BLAINE ALANIS APRN) EKG EKG [] (BLAINE ALANIS APRN) Radiology/Procedures Radiology/Procedures [] (BLAINE ALANIS APRN) Heart Score C/O Chest Pain: No Risk Factors: Risk Factors: DM, Current or recent (<one month) smoker, HTN, HLP, family history of CAD, obesity. Risk Scores: Risk Factors: DM, Current or recent (<one month) smoker, HTN, HLP, family history of CAD, obesity. (BLAINE ALANIS APRN) Course & Med Decision Making Course & Med Decision Making Pertinent Labs and Imaging studies reviewed. (See chart for details) 25-year-old female, vital signs reviewed, presents emergency department concerning chest discomfort with anxiety/panic attack. Patient's physical examination unremarkable, chest x-ray unremarkable, patient was seen here at [facility] emergency department 6 days ago with similar symptoms, full work- up unremarkable. Discussed with patient starting on the anxiety medications that are prescribed to her. Strict follow-up with primary care this week. Return to ER precautions and concerns. Patient gave verbal understanding of and is amenable to ED discharge planning. Discussed with the patient all findings and diagnostic testing as well as the need to follow-up with their primary care provider for further evaluation and treatment or return to the ED if any new or worsening symptoms. Strict return precautions were also discussed at length, the patient voiced understanding and agreement with the discharge planning. The patient was nontoxic in appearance, in no apparent distress, and hemodynamically stable at the time of disposition. (BLAINE ALANIS APRN) Dragon Disclaimer Dragon Disclaimer This electronic medical record was generated, in whole or in part, using a voice recognition dictation system. (BLAINE ALANIS APRN) Attending Co-Sign The patient was seen and interviewed as well as examined at the bedside. The chart was reviewed. The case was discussed. Agree with the plan of care. (CHRISTIANO MAE DO) Departure Departure: Impression: Primary Impression: Anxiety Additional Impression: Chest wall pain Disposition: HOME / SELF CARE / HOMELESS Condition: GOOD Referrals: COREY LOBO (PCP) Patient Instructions: Anxiety and Panic Attacks, Chest Wall Pain Additional Instructions: You are seen in the emergency department today for ongoing chest wall discomfort. Please start taking your anxiety medication as directed by your primary care doctor. Please see your primary care doctor tomorrow. Thank you for visiting our Emergency Department. It was a pleasure taking care of you today in the emergency department and we appreciate you trusting us with your care. If any additional problems come up don't hesitate to return to visit us. Please follow up with your primary care provider so they can plan additional care if needed and know about the problem that you had. If symptoms worsen come back to the Emergency Department. Any concerning symptoms that start such as chest pain, shortness of air, weakness or numbness on one side of the body, runn ing high fevers or any other concerning symptoms return to the ER. Problem Qualifiers BLAINE ALANIS APRN Sep 09, 2021 18:53 CHRISTIANO MAE DO Sep 10, 2021 13:33
== END 2021-09-09 18:57 | disposition home or self-care (01) ==
LOC: ER 14:36
DX: F41.9 Anxiety disorder, unspecified (principal); R07.89 Other chest pain
CPT/HCPCS: 71045; 99283

== ENCOUNTER 2021-09-20 00:39 | Emergency (ER) | payer OTHER ==
[~2021-09-20] VITALS: Ht 165.1 cm; Wt 46.5 kg
[2021-09-20 00:39] VITALS: BP 128/81
--- NOTE | 2021-09-20 01:15 | PHYS DOC ---
Past History Past Medical History: Anxiety Additional Past Medical Histor: covid last month Past Surgical History: No Surgical History Smoking: Non-smoker Alcohol Use: None Drug Use: None Adult General Chief Complaint Chief Complaint: ANXIETY/PANIC ATTACK HPI HPI Patient is a 26-year-old female presenting via EMS for anxiety. States she started developing symptoms consistent with prior panic/anxiety attacks when she was on the phone with her sister who got in a verbal altercation with her significant other. Patient reports she subsequently got emotional while on the phone with her sister and started developing chest tightness. She took a prescribed hydroxyzine from her primary care physician that did not significantly improve her symptoms wanting her to call EMS. On arrival, patient found to be hemodynamically stable. She was subsequently transported to our ER for further evaluation. On arrival, patient states she feels better. She still has intermittent chest tightness. States she has history of anxiety and depression and is supposed to be on Zoloft daily but has been noncompliant with this, she has been utilizing hydroxyzine as needed for acute anxiety/panic attacks. She has no diagnosed medical history otherwise, no prior cardiac issues or passing out with activity, she has no significant family history of early cardiac disease. Denies any tobacco alcohol or drug use. Review of Systems Review of Systems Fourteen body systems of review of systems have been reviewed. See HPI for pertinent positives and negative responses, other palm all other systems are negative, non-pertinent or non-contributory Allergies Allergies Allergies Coded Allergies Type Severity Reaction Last Updated Verified No Known Drug Allergies 08/03/21 No Physical Exam Physical Exam Constitutional: Well developed, age-appropriate, thin, no acute distress, non- toxic appearance. HENT: Normocephalic, atraumatic, bilateral external ears normal, oropharynx moist, no oral exudates, nose normal. Eyes: PERRLA, EOMI, conjunctiva normal, no discharge. Neck: Normal range of motion, no tenderness, supple, no stridor. Cardiovascular: Heart rate regular, sinus rhythm, no murmurs rubs or gallops Lungs & Thorax: Bilateral breath sounds clear to auscultation Abdomen: Bowel sounds normal, soft, no tenderness, no masses, no pulsatile masses. Nonsurgical abdomen, no peritoneal signs Skin: Warm, dry, no erythema, no rash. Back: No tenderness, no CVA tenderness. Extremities: No tenderness, no cyanosis, no clubbing, ROM intact, no edema. Neurologic: Alert and oriented X 3, grossly normal motor & sensory function, no focal deficits noted. Psychologic: Flat affect, depressed mood Current Patient Data Vital Signs Vital Signs Date Time Temp Pulse Resp B/P (MAP) Pulse Ox O2 Delivery O2 Flow Rate FiO2 09/20/21 00:39 98.1 108 28 128/81 (97) 97 Room Air Vital Signs Date Time Temp Pulse Resp B/P (MAP) Pulse Ox O2 Delivery O2 Flow Rate FiO2 09/20/21 00:39 98.1 108 28 128/81 (97) 97 Room Air EKG EKG EKG ordered and interpreted by myself at 0101 hrs. as sinus rhythm at 74 bpm, unremarkable intervals, no axis deviation, nonspecific T wave abnormalities noted in lead III and aVF, no STEMI Radiology/Procedures Radiology/Procedures [] Heart Score C/O Chest Pain: Yes HEART Score for Chest Pain: HEART Score for Chest Pain Response (Comments) Value History Slighlty/Non-Suspicious 0 ECG Normal 0 Age < 45 0 Risk Factors No Risk Factors 0 Total 0 Risk Factors: Risk Factors: DM, Current or recent (<one month) smoker, HTN, HLP, family history of CAD, obesity. Risk Scores: Risk Factors: DM, Current or recent (<one month) smoker, HTN, HLP, family history of CAD, obesity. Course & Med Decision Making Course & Med Decision Making Airway patent, breathing unlabored, vitals obtained concerning for tachycardia and tachypnea and an anxious individual History and physical exam obtained with subsequent EKGs nonconcerning for any emergent or surgical issues Patient reports symptoms improved with rest while in ER setting. She has not followed up with her primary care physician and/or cotton sampler and has been seeking care at our ER at increased frequency recently She openly discloses that she has not been taking her behavioral health medications which I feel is contributory to her increased anxiety and overall mental instability today in absence of any SI and/or HI I did offer repeat cardiac testing in light of recent work-up that was grossly unremarkable, patient deferred. She wants to know what is wrong. I discussed it is likely anxiety based but further outpatient follow-up with PCP and cotton sampler recommended Disclosed patient would benefit from further provocative cardiac testing in outpatient setting. Ultimately patient reports feeling fit for discharge. Strict return precautions discussed with good understanding, all questions and concerns addressed prior to ER departure Anahi Disclaimer Anahi Disclaimer This electronic medical record was generated, in whole or in part, using a voice recognition dictation system. Departure Departure: Impression: Primary Impression: Anxiety Disposition: HOME / SELF CARE / HOMELESS Condition: STABLE Referrals: COREY LOBO (PCP) Additional Instructions: You were seen in the ED for evaluation with etiology likely being your underlying anxiety. Anxiety is a serious medical condition with unfortunate effects on daily living. You should utilize the Behavior Health resources and your outpatient primary care physician for further management of your symptoms. Please ensure you are compliant with outpatient prescribed Zoloft and hydroxyzine as needed for acute panic attacks. Please contact your primary care physician 1st thing on Tuesday to review ER visit and need for close outpatient follow-up. It was a pleasure to take care of you and I wish you the best going forward EMERALD SEGUNDO DO Sep 20, 2021 01:15
--- NOTE | 2021-09-20 06:36 | EKG ---
[address] [address] Test Date: 2021-09-20 Test Time: 00:53:46 Pat Name: ABRAHAM FULLER Department: Room: Gender: F Bulk Folder: JHON : 1995 Requested By: EMERALD SEGUNDO Order Number: [id number] Reading MD: Chan Montana MD Measurements Intervals [place] Rate: 74 P: 67 OR: 134 QRS: 58 QRSD: 94 T: 34 QT: 366 QTc: 411 Interpretive Statements SINUS RHYTHM INCOMPLETE RIGHT BUNDLE BRANCH BLOCK Electronically Signed On 09-21-2021 9:15:09 [employer] SUPERVISOR by Chan Montana MD
== END 2021-09-20 01:40 | disposition home or self-care (01) ==
LOC: ER 00:39
DX: F41.9 Anxiety disorder, unspecified (principal)
CPT/HCPCS: 81025; 93005; 99283-25

== ENCOUNTER 2021-09-21 08:41 | Emergency (ER) | payer OTHER ==
[~2021-09-21] VITALS: Ht 165.1 cm; Wt 46.5 kg
--- NOTE | 2021-09-21 09:27 | PHYS DOC ---
Past History Past Medical History: Anxiety Additional Past Medical Histor: covid last month (BLAINE ALANIS APRN) Past Surgical History: No Surgical History (BLAINE ALANIS APRN) Smoking: Non-smoker Alcohol Use: None Drug Use: None (BLAINE ALANIS APRN) Adult General Chief Complaint Chief Complaint: ANXIETY/PANIC ATTACK HPI HPI Patient is a 26-year-old female who presents to the emergency department today complaining of waking up with chest tightness this morning. Patient is unable to articulate a pain number, patient reports she has been seen several times in the emergency department this month for the same symptoms however has not taken any medications that she has been prescribed by her primary care and emergency room physicians for this particular chest tightness episode, reports she has tried hydroxyzine in the past with little to no relief. Patient denies any recent anxiety problems. Denies homicidal or suicidal ideations. Patient states she is not experiencing any shortness of breath, there is no radiation of her chest tightness, describes it as a squeezing sensation across the center of her chest when she takes a deep breath however does not find difficulty taking a deep breath. Patient denies syncopal or near syncopal episodes, denies dizziness, recent fever or chills, denies chest pain or chest palpitations, denies nasal congestion or chest congestion. Patient denies abdominal pain, nausea, vomiting, or diarrhea, denies increased urinary frequency, hematuria or other dysuria. Patient states she has not followed up with her primary care physician recently, patient states she does wants to know what is wrong with her. Patient denies history of cigarette smoking, drinking alcohol or illicit drug use. (BLAINE ALANIS APRN) Review of Systems Review of Systems 14 body systems of review of systems have been reviewed. See HPI for pertinent positives and negative responses, otherwise all other systems are negative, nonpertinent or noncontributory. Constitutional: Negative except as outlined in HPI above. Skin: Negative except as outlined in HPI above. Eyes: Negative except as outlined in HPI above. HENT: Negative except as outlined in HPI above. Respiratory: Negative except as outlined in HPI above. Cardiovascular: Negative except as outlined in HPI above. GI: Negative except as outlined in HPI above. : Negative except as outlined in HPI above. Musculoskeletal: Negative except as outlined in HPI above. Integument: Negative except as outlined in HPI above. Neurologic: Negative except as outlined in HPI above. Endocrine: Negative except as outlined in HPI above. Lymphatic: Negative except as outlined in HPI above. Psychiatric: Negative except as outlined in HPI above. (BLAINE ALANIS APRN) Allergies Allergies Allergies Coded Allergies Type Severity Reaction Last Updated Verified No Known Drug Allergies 08/03/21 No (BLAINE ALANIS APRN) Physical Exam Physical Exam Constitutional: Well developed, well nourished, no acute distress, non-toxic appearance. 26-year-old female in no apparent distress. Patient is very thin. Patient is fidgety during examination, moving around in bed. HENT: Normocephalic, atraumatic. Eyes: Conjunctiva normal, no discharge. Neck: Normal range of motion, no stridor. Cardiovascular: No cyanosis appreciated, distal cap refill less than 2 seconds. Heart sounds S1-S2. Regular rate and rhythm. Lungs & Thorax: Patient is in no respiratory distress, no audible adventitious lung sounds appreciated. Lung sounds clear to auscultation all lung snell. Abdomen: Nontender, no abnormalities noted. No surgical scars present, no masses, no megaly, normal bowel sounds all 4 quadrants. Skin: Warm, dry, no erythema, no rash. Back: No tenderness, no deformities. Extremities: No tenderness, no cyanosis, no clubbing, ROM intact, no edema. Neurologic: Alert and oriented X 3, normal motor function, normal sensory function, no focal deficits noted. Psychologic: Affect anxious, judgement normal, mood normal. (BLAINE ALANIS APRN) EKG EKG EKG performed at 945 by ED nursing staff shows a normal sinus rhythm with a right bundle branch block otherwise without other ectopy, heart rate 85 bpm, RI interval 0.128, QTc interval 0.526, no acute STEMI, no ACS, no acute ischemia appreciated, EKG interpreted by ED attending physician Dr. Mae. (BLAINE ALANIS APRN) Radiology/Procedures Radiology/Procedures STATUS: REG ER ORD. PHYSICIAN: BLAINE ALANIS APRN REASON: Chest tightness PROCEDURE: CHEST AP ONLY EXAM: Chest, single view. HISTORY: Chest tightness. COMPARISON: 09/09/2021 FINDINGS: A frontal view of the chest is obtained. There is no infiltrate, pleural effusion or pneumothorax. The heart is normal in size. IMPRESSION: No acute pulmonary finding. Electronically signed by: Renetta Tejada MD (09/21/2021 9:41 AM) [id number] (BLAINE ALANIS APRN) Heart Score C/O Chest Pain: Yes HEART Score for Chest Pain: HEART Score for Chest Pain Response (Comments) Value History Slighlty/Non-Suspicious 0 ECG Normal 0 Age < 45 0 Risk Factors No Risk Factors 0 Troponin < Normal Limit 0 Total 0 Risk Factors: Risk Factors: DM, Current or recent (<one month) smoker, HTN, HLP, family history of CAD, obesity. Risk Scores: Risk Factors: DM, Current or recent (<one month) smoker, HTN, HLP, family history of CAD, obesity. (BLAINE ALANIS APRN) Course & Med Decision Making Course & Med Decision Making Pertinent Labs and Imaging studies reviewed. (See chart for details) 26-year-old female, vital signs reviewed, presents emergency department concerning chest tightness. Physical examination is unremarkable, patient does appear anxious, however patient's airway is patent, breathing is unlabored, there is no tachycardia or tachypnea present during examination, upon extensive chart review, patient has been examined several times in this emergency department with findings of nonconcerning EKGs or other emergent or surgical issues. Discussed these findings with patient and discussed previous ED work- ups with patient, recommended cardiology or primary care follow-up has not been achieved by patient, discussed this with patient, patient reports she will call for an appointment to see her primary care doctor at today. Patient reports she does not take her anxiety medications as she feels it increases her anxiety problems. Discussed with patient these medications may actually help decrease her anxiety and overall mental stability, patient denies need to take her mental health medications, patient continues to deny homicidal or suicidal ideation. Discussed with patient at length need to follow-up with cardiology specialty related to several years of chest discomfort with emergency room work-ups nonconcerning for acute process. Patient reports she will see her primary care doctor at first before deciding to see any further specialty doctors. Discussed with patient return to ER precautions and concerns, patient gave verbal understanding of and is amenable to ED discharge planning. The patient is EKG, cardiac labs, CBC, CMP, urinalysis assay were not concerning, the patient is not . Discussed with the patient all findings and diagnostic testing as well as the need to follow-up with their primary care provider for further evaluation and treatment or return to the ED if any new or worsening symptoms. Strict return precautions were also discussed at length, the patient voiced understanding and agreement with the discharge planning. The patient was nontoxic in appearance, in no apparent distress, and hemodynamically stable at the time of disposition. (BLAINE ALANIS APRN) Dragon Disclaimer Dragon Disclaimer This electronic medical record was generated, in whole or in part, using a voice recognition dictation system. (BLAINE ALANIS APRN) Attending Co-Sign The patient was seen and interviewed as well as examined at the bedside. The chart was reviewed. The case was discussed. Agree with the plan of care. (CHRISTIANO MAE DO) Departure Departure: Impression: Primary Impression: Chest tightness Disposition: HOME / SELF CARE / HOMELESS Condition: GOOD Referrals: COREY LOBO (PCP) Additional Instructions: You were seen today in the emergency department for chest tightness. Your EKG, chest x-ray, lab work and urinalysis did not show any concerning findings. As we discussed, it is very important that you follow-up with your primary care doctor or a aircraft part assembler for further investigation of your symptoms. As we discussed, please call today for the soonest appointment with your primary care physician. Thank you for visiting our Emergency Department. It was a pleasure taking care of you today in the emergency department and we appreciate you trusting us with your care. If any additional problems come up don't hesitate to return to visit us. Please follow up with your primary care provider so they can plan additional care if needed and know about the problem that you had. If symptoms worsen come back to the Emergency Department. Any concerning symptoms that start such as chest pain, shortness of air, weakness or numbness on one s hannah of the body, running high fevers or any other concerning symptoms return to the ER. EMERGENCY DEPARTMENT GENERAL DISCHARGE INSTRUCTIONS Thank you for coming to [facility] (ED) today and trusting us with you care. We trust that you had a positivie experience in our Emergency Department. If you wish to speak to the department management, you may call the director at [phone]. YOUR FOLLOW UP INSTRUCTIONS ARE FOLLOWS: 1. Do you have a private Doctor? If you do not have a private doctor, please ask for a resource list of physicians or clinics that may be able to assist you with follow up care. 2. The Emergency Physician has interpreted your x-rays. The X-Ray specialist will also review them. If there is a change in the findings, you will be notified in 48 hours when at all possible. 3. A lab test or culture has been done, your results will be reviewed and you will be notified if you need a change in treatment. ADDITIONAL INSTRUCTIONS AND INFORMATION: 1. Your care today has been supervised by a physician who is specially trained in emergency care. Many problems require more than one evaluation for a complete diagnosis and treatment. We recommend that you schedule your follow up appointment as recommended to ensure complete treatment of you illness or injury. If you are unable to obtain follow up care and continue to have a problem, or if your condition worsens, we recommend that you return to the ED. 2. We are not able to safely determine your condition over the phone nor are we able to give sound medical advice over the phone. For these safety reasons, if you call for medical advice we will ask you to come to the ED for further evaluation. 3. If you have any questions regarding these discharge instructions please call the ED at [phone]. SAFETY INFORMATION: In the interest of safety, wellness, and injury prevention; we encourage you to wear your sealbelt, if you smoke; quite smoking, and we encourage family to use a protective helmet for bicycling and other sporting events that present an increased risk for head injury. IF YOUR SYMPTOMS WORSEN OR NEW SYMPTOMS DEVELOP, OR YOU HAVE CONCERNS ABOUT YOUR CONDITION; OR IF YOUR CONDITION WORSENS WHILE YOU ARE WAITING FOR YOUR FOLLOW UP APPOINTM ENT; EITHER CONTACT YOUR PRIMARY CARE DOCTOR, THE PHYSICIAN WHOSE NAME AND NUMBER YOU WERE GIVEN, OR RETURN TO THE ED IMMEDIATELY. BLAINE ALANIS APRN Sep 21, 2021 09:27 CHRISTIANO MAE DO Sep 22, 2021 11:23
--- NOTE | 2021-09-21 09:44 | RAD ---
EXAM: Chest, single view. HISTORY: Chest tightness. COMPARISON: 09/09/2021 FINDINGS: A frontal view of the chest is obtained. There is no infiltrate, pleural effusion or pneumo thorax. The heart is normal in size. IMPRESSION: No acute pulmonary finding. Electronically signed by: Rneetta Tejada MD (09/21/2021 9:41 AM) [id number]
--- NOTE | 2021-09-21 09:52 | EKG ---
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
[2021-09-21 10:38] LABS: BASO # 0.1 x10^3/uL (0.0-0.2); BASO % 1 % (0-3); EOS # 0.1 x10^3/uL (0.0-0.7); EOS % 2 % (0-3); HEMATOCRIT 38.7 % (36.0-47.0); HEMOGLOBIN 13.1 g/dL (12.0-15.5); LYMPH # 2.7 x10^3/uL (1.0-4.8); LYMPH % 36 % (24-48); MEAN CORPUSCULAR HEMOGLOBIN 29 pg (25-35); MEAN CORPUSCULAR HGB CONC 34 g/dL (31-37); MEAN CORPUSCULAR VOLUME 86 fL (79-100); MONO # 0.3 x10^3/uL (0.0-1.1); MONO % 4 % (0-9); NEUT # 4.4 x10^3uL (1.8-7.7); NEUT % 57 % (31-73); PLATELET COUNT 412 x10^3/uL (140-400); RED BLOOD COUNT 4.51 x10^6/uL (3.50-5.40); RED CELL DISTRIBUTION WIDTH 14.3 % (11.5-14.5); WHITE BLOOD COUNT 7.6 x10^3/uL (4.0-11.0)
[2021-09-21 10:49] LABS: CALCIUM 9.5 mg/dL (8.5-10.1); CREATININE 0.6 mg/dL (0.6-1.0); GFR 145.1; POTASSIUM 3.6 mmol/L (3.5-5.1)
[2021-09-21 11:01] LABS: ALBUMIN 3.8 g/dL (3.4-5.0); ALBUMIN/GLOBULIN RATIO 1.1 (1.0-1.7); TOTAL BILIRUBIN 0.4 mg/dL (0.2-1.0); TOTAL PROTEIN 7.3 g/dL (6.4-8.2)
[2021-09-21 11:45] LABS: BILIRUBIN,URINE SMALL (NEG); CLARITY,URINE CLOUDY; COLOR,URINE YELLOW; GLUCOSE,URINE NEG (NEG)
[2021-09-21 11:46] LABS: BACTERIA,URINE FEW /HPF (0-FEW); NITRITE,URINE NEG (NEG); RBC,URINE OCC /HPF (0-2); SQUAMOUS EPITHELIAL CELL,UR MANY /LPF; UROBILINOGEN,URINE 0.2 mg/dL (0.2 mg/dL)
[2021-09-21 13:24] VITALS: BP 94/67
== END 2021-09-21 13:25 | disposition home or self-care (01) ==
LOC: ER 08:41
DX: R07.89 Other chest pain (principal); F41.9 Anxiety disorder, unspecified
CPT/HCPCS: 36415; 71045; 80053; 81001; 81025; 83690; 83880; 84484; 85025; 87086; 93005; 99285

== ENCOUNTER 2021-10-04 10:26 | Emergency (ER) | payer OTHER ==
[~2021-10-04] VITALS: Ht 165.1 cm; Wt 46.5 kg
--- NOTE | 2021-10-04 11:00 | RAD ---
Single view chest dated 10/04/2021 10:57 AM: COMPARISON: 09/21/2021 Clinical Indication: Chest tightness. Findings: Single upright portable exam of the chest was performed. Heart size and mediastinal contours are with in normal limits. Lungs are clear. No consolidation or pleural effusion. No pneumothorax. IMPRESSION: No acute radiographic abnormality. Electronically signed by: Abiodun Berman MD (10/04/2021 10:57 AM) [id number]
[2021-10-04 11:41] LABS: BASO # 0.1 x10^3/uL (0.0-0.2); BASO % 1 % (0-3); EOS # 0.2 x10^3/uL (0.0-0.7); EOS % 4 % (0-3); HEMATOCRIT 38.9 % (36.0-47.0); HEMOGLOBIN 12.9 g/dL (12.0-15.5); LYMPH # 2.5 x10^3/uL (1.0-4.8); LYMPH % 41 % (24-48); MEAN CORPUSCULAR HEMOGLOBIN 29 pg (25-35); MEAN CORPUSCULAR HGB CONC 33 g/dL (31-37); MEAN CORPUSCULAR VOLUME 87 fL (79-100); MONO # 0.4 x10^3/uL (0.0-1.1); MONO % 6 % (0-9); NEUT % 49 % (31-73); PLATELET COUNT 364 x10^3/uL (140-400); RED BLOOD COUNT 4.47 x10^6/uL (3.50-5.40); RED CELL DISTRIBUTION WIDTH 13.8 % (11.5-14.5); WHITE BLOOD COUNT 6.1 x10^3/uL (4.0-11.0)
[2021-10-04 11:48] LABS: CALCIUM 9.3 mg/dL (8.5-10.1); CREATININE 0.6 mg/dL (0.6-1.0); GFR 145.1; POTASSIUM 3.7 mmol/L (3.5-5.1)
--- NOTE | 2021-10-04 11:52 | EKG ---
[address] [address] Test Date: 2021-10-04 Test Time: 10:29:58 Pat Name: ABRAHAM FULLER Department: Room: Gender: F [employer] Drm Consultant: JHON : 1995 Requested By: BLAINE ALANIS Order Number: [id number] Reading MD: Mykel Brady Measurements Intervals [place] Rate: 79 P: 75 MS: 134 QRS: 54 QRSD: 94 T: 48 QT: 362 QTc: 416 Interpretive Statements SINUS RHYTHM INCOMPLETE RIGHT BUNDLE BRANCH BLOCK Electronically Signed On 10-05-2021 11:43:21 PIERCING ARTIST by Mykel Brady
[2021-10-04 12:01] LABS: ALBUMIN 3.7 g/dL (3.4-5.0); ALBUMIN/GLOBULIN RATIO 1.1 (1.0-1.7); PHOSPHORUS 4.5 mg/dL (2.6-4.7); TOTAL BILIRUBIN 0.4 mg/dL (0.2-1.0); TOTAL PROTEIN 7.1 g/dL (6.4-8.2)
--- NOTE | 2021-10-04 13:03 | PHYS DOC ---
Past History Past Medical History: Anxiety Additional Past Medical Histor: covid 2020 (BLAINE ALANIS APRN) Past Surgical History: No Surgical History (BLAINE ALANIS APRN) Smoking: Non-smoker Alcohol Use: None Drug Use: None (BLAINE ALANIS APRN) Adult General Chief Complaint Chief Complaint: CHEST PAIN HPI HPI Patient is a 26-year-old female who presents to the emergency department complaining of chest tightness and anxiety problems for the past 8 weeks. Patient states she has been seen here several times this month for the same thing and no one is telling her what is going on. Patient reports she was prescribed anxiety medications that she has not taken because she does not feel comfortable starting new medications. Patient reports she was told she needed to follow-up with a brand analyst and a primary care doctor, patient reports she does not have a car and she cannot make it to any appointments, states she only calls an ambulance to have her brought to the emergency department for ev aluation. Patient is unable to articulate a tightness number scale, reports she is not having chest pain, denies shortness of breath, chest or nasal congestion, denies recent fever or chills, denies dizzy spells, syncopal or near syncopal episodes. Patient denies other physical complaints or physical concerns. (BLAINE ALANIS APRN) Review of Systems Review of Systems 14 body systems of review of systems have been reviewed. See HPI for pertinent positives and negative responses, otherwise all other systems are negative, nonpertinent or noncontributory. Constitutional: Negative except as outlined in HPI above. Skin: Negative except as outlined in HPI above. Eyes: Negative except as outlined in HPI above. HENT: Negative except as outlined in HPI above. Respiratory: Negative except as outlined in HPI above. Cardiovascular: Negative except as outlined in HPI above. GI: Negative except as outlined in HPI above. : Negative except as outlined in HPI above. Musculoskeletal: Negative except as outlined in HPI above. Integument: Negative except as outlined in HPI above. Neurologic: Negative except as outlined in HPI above. Endocrine: Negative except as outlined in HPI above. Lymphatic: Negative except as outlined in HPI above. Psychiatric: Negative except as outlined in HPI above. (BLAINE ALANIS APRN) Allergies Allergies Allergies Coded Allergies Type Severity Reaction Last Updated Verified No Known Drug Allergies 08/03/21 No (BLAINE ALANIS APRN) Physical Exam Physical Exam Constitutional: Well developed, well nourished, no acute distress, non-toxic appearance. 26-year-old female in no apparent distress. Patient is very thin. HENT: Normocephalic, atraumatic. Oropharynx moist, pink, no deep tissue infection freshest appreciated, bilateral TMs intact and within normal limits. No lymphadenopathy of the head or neck appreciated. Eyes: Conjunctiva normal, no discharge. Neck: Normal range of motion, no stridor. Cardiovascular: No cyanosis appreciated, distal cap refill less than 2 seconds. Heart sounds S1-S2 to auscultation, regular rate and rhythm. Lungs & Thorax: Patient is in no respiratory distress, no audible adventitious lung sounds appreciated. Lung sounds clear to auscultation all lung snell. Normal work of breathing. Abdomen: Nontender, no abnormalities noted. Skin: Warm, dry, no erythema, no rash. Back: No tenderness, no deformities. Extremities: No tenderness, no cyanosis, no clubbing, ROM intact, no edema. Neurologic: Alert and oriented X 3, normal motor function, normal sensory function, no focal deficits noted. Psychologic: Affect normal, judgement normal, mood normal. (BLAINE ALANIS APRN) Current Patient Data Vital Signs Vital Signs Date Time Temp Pulse Resp B/P (MAP) Pulse Ox O2 Delivery O2 Flow Rate FiO2 10/04/21 10:28 98.5 88 21 133/71 (91) 99 Lab Results Laboratory Tests Test 10/04/21 11:00 White Blood Count 6.1 x10^3/uL (4.0-11.0) Red Blood Count 4.47 x10^6/uL (3.50-5.40) Hemoglobin 12.9 g/dL (12.0-15.5) Hematocrit 38.9 % (36.0-47.0) Mean Corpuscular Volume 87 fL (79-100) Mean Corpuscular Hemoglobin 29 pg (25-35) Mean Corpuscular Hemoglobin Concent 33 g/dL (31-37) Red Cell Distribution Width 13.8 % (11.5-14.5) Platelet Count 364 x10^3/uL (140-400) Neutrophils (%) (Auto) 49 % (31-73) Lymphocytes (%) (Auto) 41 % (24-48) Monocytes (%) (Auto) 6 % (0-9) Eosinophils (%) (Auto) 4 % (0-3) H Basophils (%) (Auto) 1 % (0-3) Neutrophils # (Auto) 3.0 x10^3uL (1.8-7.7) Lymphocytes # (Auto) 2.5 x10^3/uL (1.0-4.8) Monocytes # (Auto) 0.4 x10^3/uL (0.0-1.1) Eosinophils # (Auto) 0.2 x10^3/uL (0.0-0.7) Basophils # (Auto) 0.1 x10^3/uL (0.0-0.2) Sodium Level 141 mmol/L (136-145) Potassium Level 3.7 mmol/L (3.5-5.1) Chloride Level 102 mmol/L (98-107) Carbon Dioxide Level 28 mmol/L (21-32) Anion Gap 11 (6-14) Blood Urea Nitrogen 8 mg/dL (7-20) Creatinine 0.6 mg/dL (0.6-1.0) Estimated GFR (Cockcroft-Gault) 145.1 BUN/Creatinine Ratio 13 (6-20) Glucose Level 99 mg/dL (70-99) Calcium Level 9.3 mg/dL (8.5-10.1) Phosphorus Level 4.5 mg/dL (2.6-4.7) Magnesium Level 2.0 mg/dL (1.8-2.4) Total Bilirubin 0.4 mg/dL (0.2-1.0) Aspartate Amino Transferase (AST) 16 U/L (15-37) Alanine Aminotransferase (ALT) 19 U/L (14-59) Alkaline Phosphatase 61 U/L (46-116) Troponin I High Sensitivity 7 ng/L (4-50) YD-Pqt-F-Type Natriuretic Peptide 12 pg/mL (0-124) Total Protein 7.1 g/dL (6.4-8.2) Albumin 3.7 g/dL (3.4-5.0) Albumin/Globulin Ratio 1.1 (1.0-1.7) Lipase 95 U/L (73-393) (BLAINE ALANIS APRN) EKG EKG EKG performed at 1029 by ED nursing staff shows a normal sinus rhythm without other ectopy, IL interval 0.134, QTc interval 0.416, no acute STEMI, no ACS, no acute ischemia appreciated, EKG interpreted by ED attending physician Dr. Mae. (BLAINE ALANIS APRN) Radiology/Procedures Radiology/Procedures REASON: Chest tightness PROCEDURE: CHEST AP ONLY Single view chest dated 10/04/2021 10:57 AM: COMPARISON: 09/21/2021 Clinical Indication: Chest tightness. Findings: Single upright portable exam of the chest was performed. Heart size and mediastinal contours are within normal limits. Lungs are clear. No consolidation or pleural effusion. No pneumothorax. IMPRESSION: No acute radiographic abnormality. Electronically signed by: Blaine Berman MD (10/04/2021 10:57 AM) [id number] (BLAINE ALANIS APRN) Heart Score C/O Chest Pain: No Risk Factors: Risk Factors: DM, Current or recent (<one month) smoker, HTN, HLP, family history of CAD, obesity. Risk Scores: Risk Factors: DM, Current or recent (<one month) smoker, HTN, HLP, family history of CAD, obesity. (BLAINE ALANIS APRN) Course & Med Decision Making Course & Med Decision Making Pertinent Labs and Imaging studies reviewed. (See chart for details) 26-year-old female, vital signs reviewed, this is a very department concerning several weeks of chest tightness. Physical examination is unremarkable, the patient is in no apparent distress, the patient is well-known to this emergency department, has been evaluated several times for similar symptoms, patient was prescribed Zoloft which she has not started taking for anxiety problems, patient reports she has not followed up with a primary care physician or brand analyst as has been recommended several times. Will order chest x-ray, EKG, CBC, CMP, troponin I, serum lipase, NT proBNP. Will monitor cardiac activity, NIBP, pulse ox. Urinalysis assay, test. COVID-19 testing rapid flu testing. Patient had refused COVID-19 testing/rapid flu testing. The patient has not given a urine sample for testing, otherwise patient's serum labs, EKG, chest x- ray nonconcerning for cardiac or respiratory concerns. Upon reevaluation of the patient, patient remains in no apparent distress, hemodynamically stable. Discussed with patient strict follow-up with primary care cardiology, urged patient to start taking her prescribed anxiety medications, patient gave verbal understanding of and is amenable to ED discharge planning. Discussed with the patient all findings and diagnostic testing as well as the need to follow-up with their primary care provider for further evaluation and treatment or return to the ED if any new or worsening symptoms. Strict return precautions were also discussed at length, the patient voiced understanding and agreement with the discharge planning. The patient was nontoxic in appearance, in no apparent distress, and hemodynamically stable at the time of disposition. (BLAINE ALANIS APRN) Dragon Disclaimer Dragon Disclaimer This electronic medical record was generated, in whole or in part, using a voice recognition dictation system. (BLAINE ALANIS APRN) Attending Co-Sign The patient was seen and interviewed as well as examined at the bedside. The chart was reviewed. The case was discussed. Agree with the plan of care. (CHRISTIANO MAE DO) Departure Departure: Impression: Primary Impression: Anxiety Additional Impression: Chest tightness Disposition: HOME / SELF CARE / HOMELESS Condition: GOOD Referrals: COREY LOBO (PCP) Additional Instructions: You were seen today in the emergency department for chest tightness. Your chest x-ray, EKG, and lab work did not show any concerning findings for heart or lung problems. You refused COVID-19/flu testing. Please start taking your anxiety medications as prescribed. Please follow-up with a brand analyst soon for ongoing evaluation of your chest tightness, please follow-up with your primary care provider this week for reevaluation of chest tightness. Thank you for visiting our Emergency Department. It was a pleasure taking care of you today in the emergency department and we appreciate you trusting us with your care. If any additional problems come up don't hesitate to return to visit us. Please follow up with your primary care provider so they can plan additional care if needed and know about the problem that you had. If symptoms worsen come back to the Emergency Department. Any concerning symptoms that start such as chest pain, shortness of air, weakness or numbness on one side of the body, running high fevers or any other concerning symptoms return to the ER. Problem Qualifiers BLAINE ALANIS APRN Oct 04, 2021 13:03 CHRISTIANO MAE DO Oct 05, 2021 10:21
[2021-10-04 13:10] VITALS: BP 110/48
== END 2021-10-04 13:20 | disposition home or self-care (01) ==
LOC: ER 10:26
DX: F41.9 Anxiety disorder, unspecified (principal); R07.89 Other chest pain
CPT/HCPCS: 36415; 71045; 80053; 83690; 83735; 83880; 84100; 84484; 85025; 93005; 99285

== ENCOUNTER 2021-10-09 09:59 | Emergency (ER) | payer OTHER ==
[~2021-10-09] VITALS: Ht 165.1 cm; Wt 46.5 kg
--- NOTE | 2021-10-09 10:31 | PHYS DOC ---
Past History Past Medical History: Anxiety Additional Past Medical Histor: covid 2020 (DAYANARA CORTES APRN) Past Surgical History: No Surgical History (DAYANARA CORTES APRN) Smoking: Non-smoker Alcohol Use: None Drug Use: None (DAYANARA CORTES APRN) General Adult EDM: Chief Complaint: DIZZY/LIGHT HEADED HPI: HPI: Patient is a 26-year-old female presents with dizziness, blurred vision, states that she feels uneasy on her feet. Patient states that her blurry vision has resolved since she arrived. Denies recent illness. Denies headache. Denies chest pain, shortness of breath. Patient has been seen in the emergency room multiple times for same complaints. Patient states that she was seen by her PCP this morning who suggested she be seen in the emergency room for symptoms. No other changes in motor or sensory or neuro function. Patient has been prescribed Zoloft for her anxiety, but has not been taking it. History of anxiety. Denies tobacco use, alcohol or drugs. (DAYANARA CORTES APRN) Review of Systems: Review of Systems: Constitutional: Denies fever or chills Eyes: Reports blurry vision HENT: Denies nasal congestion or sore throat Respiratory: Denies cough or shortness of breath Cardiovascular: Denies chest pain or edema GI: Denies abdominal pain, nausea, vomiting, bloody stools or diarrhea : Denies dysuria Musculoskeletal: Denies back pain or joint pain Integument: Denies rash Neurologic: Denies headache, focal weakness or sensory changes Endocrine: Denies polyuria or polydipsia Lymphatic: Denies swollen glands Psychiatric: Reports history of depression or anxiety (DAYANARA CORTES APRN) Allergies: Allergies: Allergies Coded Allergies Type Severity Reaction Last Updated Verified No Known Drug Allergies 08/03/21 No (DAYANARA CORTES APRN) Physical Exam: PE: Constitutional: Well developed, well nourished, no acute distress, non-toxic appearance. HENT: Normocephalic, atraumatic, bilateral external ears normal, oropharynx g[address], no oral exudates, nose normal. Eyes: PERRLA, conjunctiva normal, no discharge. Neck: Normal range of motion, no tenderness, no stridor. Cardiovascular:Heart rate regular rhythm, no murmur Lungs & Thorax: Bilateral breath sounds clear to auscultation Abdomen: Bowel sounds normal, soft, no tenderness, no masses Skin: Warm, dry, no erythema, no rash. Back: No tenderness, no CVA tenderness. Extremities: No tenderness, no cyanosis, no clubbing, ROM intact, no edema. Neurologic: Alert and oriented X 3, normal motor function, normal sensory function, no focal deficits noted. Psychologic: Flat affect, judgement normal, anxious mood (DAYANARA CORTES APRN) Current Patient Data: Vital Signs: Vital Signs Date Time Temp Pulse Resp B/P (MAP) Pulse Ox O2 Delivery O2 Flow Rate FiO2 10/09/21 10:18 97.8 103 16 99/66 (77) 97 (DAYANARA CORTES APRN) EKG: EKG: [] Sinus rhythm, heart rate [address] elevation or depression. Read by Dr. Mae at 1028. (DAYANARA CORTES APRN) Radiology/Procedures: Radiology/Procedures: []CT HEAD WITHOUT CONTRAST 10/09/2021 10:16 AM Indication: Dizziness Comparison: CT head without contrast August 07, 2021 Procedure: Multidetector CT imaging of the head was performed without the administration of contrast. Findings: There is no evidence of acute intracranial hemorrhage. There is no evidence of acute territorial infarction. Please note that CT is limited for evaluation of acute ischemia. No mass effect or midline shift is identified . The ventricles and basilar cisterns have an appropriate appearance. No abnormal extra-axial fluid collections are seen. No acute osseous changes are identified. Impression: No evidence of acute intracranial abnormality CT DOSING PQRS STATEMENT: One or more of the following individualized dose reduction techniques were utilized for this examination: 1. Automated exposure control 2. Adjustment of the mA and/or kV according to patient size 3. Use of iterative reconstruction technique Electronically signed by: Gustavo Hollins MD (10/09/2021 10:45 AM) [id number] (DAYANARA CORTES APRN) Heart Score: C/O Chest Pain: No Risk Factors: Risk Factors: DM, Current or recent (<one month) smoker, HTN, HLP, family history of CAD, obesity. Risk Scores: Score 0 - 3: 2.5% MACE over next 6 weeks - Discharge Home Score 4 - 6: 20.3% MACE over next 6 weeks - Admit for Clinical Observation Score 7 - 10: 72.7% MACE over next 6 weeks - Early Invasive Strategies (DAYANARA CORTES APRN) Course & Med Decision Making: Course & Med Decision Making Pertinent Labs and Imaging studies reviewed. (See chart for details) [] 26-year-old female presents with dizziness, blurred vision. Patient is well- known to this emergency room and has been seen multiple times for same complaints. Denying pain. Blurry vision has resolved upon arrival to the ER. No other changes in motor or sensory or neuro function. Patient was able to ambulate on her own into the emergency room. Denying pain or shortness of breath. Work-up in ER consisted of labs, urinalysis, urine , CT head, EKG. Patient is hemodynamically stable EKG showed sinus rhythm. Heart rate [address] elevation or depression. Blood sugar, 109. All other labs are unremarkable. Urine test is negative. CT head negative for any acute abnormalities. Visual acuity unremarkable. Denying blurred vision at this time. Patient symptoms are most likely from anxiety. Patient is well-known to this emergency room for similar complaints. Patient is currently supposed to be taking Zoloft prescribed by her PCP but does not take it because she is uncomfortable taking the medication. Advised patient she needs to follow-up with her PCP and start taking the medication as prescribed to try and help with symptoms. Patient reports that she does not drink much water throughout the day. Discussed the importance of hydration and to increase fluids. Patient states that she understands discharge instructions. Discussed return p recautions in length. Verbalizes understanding. (DAYANARA CORTES APRN) Dragon Disclaimer: Anahi Disclaimer: This electronic medical record was generated, in whole or in part, using a voice recognition dictation system. (DAYANARA CORTES APRN) Attending Co-Sign The patient was seen and interviewed as well as examined at the bedside. The chart was reviewed. The case was discussed. Agree with the plan of care. (CHRISTIANO MAE DO) Departure Departure: Impression: Primary Impression: Anxiety Additional Impression: Dizziness Disposition: 01 HOME / SELF CARE / HOMELESS Condition: STABLE Referrals: COREY LOBO (PCP) Patient Instructions: Anxiety and Panic Attacks, [id number] Additional Instructions: You are seen in the emergency room for blurry vision, dizziness. All of your labs are unremarkable. CT of your head was negative. You are most likely experiencing symptoms that relate to your anxiety. It is important you start taking the medication that was prescribed to you to help with your anxiety symptoms. Make sure you are drinking plenty of fluids to help with hydration. Please follow back up with your PCP for further management. Return to emergency room if you have worsening symptoms or concerns such as chest pain, shortness of breath or any worsening symptoms. EMERGENCY DEPARTMENT GENERAL DISCHARGE INSTRUCTIONS Thank you for coming to [facility] (ED) today and trusting us with you care. We trust that you had a positivie experience in our Emergency Department. If you wish to speak to the department management, you may call the director at [phone]. YOUR FOLLOW UP INSTRUCTIONS ARE FOLLOWS: 1. Do you have a private Doctor? If you do not have a private doctor, please ask for a resource list of physicians or clinics that may be able to assist you with follow up care. 2. The Emergency Physician has interpreted your x-rays. The X-Ray specialist will also review them. If there is a change in the findings, you will be notified in 48 hours when at all possible. 3. A lab test or culture has been done, your results will be reviewed and you will be notified if you need a change in treatment. ADDITIONAL INSTRUCTIONS AND INFORMATION: 1. Your care today has been supervised by a physician who is specially trained in emergency care. Many problems require more than one evaluation for a complete diagnosis and treatment. We recommend that you schedule your follow up appointment as recommended to ensure complete treatment of you illness or injury. If you are unable to obtain follow up care and continue to have a problem, or if your condition worsens, we recommend that you return to the ED. 2. We are not able to safely determine your condition over the phone nor are we able to give sound medical advice over the phone. For these safety reasons, if you call for medical advice we will ask you to come to the ED for further evaluation. 3. If you have any questions regarding these discharge instructions please call the ED at [phone]. SAFETY INFORMATION: In the interest of safety, wellness, and injury prevention; we encourage you to wear your sealbelt, if you smoke; quite smoking, and we encourage family to use a protective helmet for bicycling and other sporting events that present an increased risk for head injury. IF YOUR SYMPTOMS WORSEN OR NEW SYMPTOMS DEVELOP, OR YOU HAVE CONCERNS ABOUT YOUR CONDITION; OR IF YOUR CONDITION WORSENS WHILE YOU ARE WAITING FOR YOUR FOLLOW UP APPOINTMENT; EITHER CONTACT YOUR PRIMARY CARE DOCTOR, THE PHYSICIAN WHOSE NAME AND NUMBER YOU WERE GIVEN, OR RETURN TO THE ED IMMEDIATELY. DAYANARA CORTES APRN Oct 09, 2021 10:31 CHRISTIANO MAE DO Oct 12, 2021 06:16
[2021-10-09 10:37] LABS: BASO # 0.1 x10^3/uL (0.0-0.2); BASO % 2 % (0-3); EOS # 0.4 x10^3/uL (0.0-0.7); EOS % 5 % (0-3); HEMOGLOBIN 12.7 g/dL (12.0-15.5); LYMPH # 1.9 x10^3/uL (1.0-4.8); LYMPH % 28 % (24-48); MEAN CORPUSCULAR HEMOGLOBIN 29 pg (25-35); MEAN CORPUSCULAR HGB CONC 34 g/dL (31-37); MEAN CORPUSCULAR VOLUME 86 fL (79-100); MONO # 0.4 x10^3/uL (0.0-1.1); MONO % 5 % (0-9); NEUT % 60 % (31-73); PLATELET COUNT 363 x10^3/uL (140-400); RED BLOOD COUNT 4.42 x10^6/uL (3.50-5.40); RED CELL DISTRIBUTION WIDTH 14.1 % (11.5-14.5); WHITE BLOOD COUNT 6.8 x10^3/uL (4.0-11.0)
[2021-10-09 10:46] LABS: CALCIUM 8.7 mg/dL (8.5-10.1); CREATININE 0.6 mg/dL (0.6-1.0); GFR 145.1; POTASSIUM 3.5 mmol/L (3.5-5.1)
--- NOTE | 2021-10-09 10:47 | RAD ---
CT HEAD WITHOUT CONTRAST 10/09/2021 10:16 AM Indication: Dizziness Comparison: CT head without contrast August 07, 2021 Procedure: Multidetector CT imaging of the head was performed without the administration of contrast. Findings: There is no evidence of acute intracranial hemorrhage. There is no evidence of acute territ orial infarction. Please note that CT is limited for evaluation of acute ischemia. No mass effect or midline shift is identified . The ventricles and basilar cisterns have an appropriate appearance. No abnormal extra-axial fluid collections are seen. No acute osseous changes are identified. Impression: No evidence of acute intracranial abnormality CT DOSING PQRS STATEMENT: One or more of the following individualized dose reduction techniques were utilized for this examinat ion: 1. Automated exposure control 2. Adjustment of the mA and/or kV according to patient size 3. Use of iterative reconstruction technique Electronically signed by: Gustavo Hollins MD (10/09/2021 10:45 AM) [id number]
--- NOTE | 2021-10-09 10:58 | EKG ---
[address] [address] Test Date: 2021-10-09 Test Time: 10:24:09 Pat Name: ABRAHAM FULLER Department: Room: Gender: F [employer] Operator: JHON : 1995 Requested By: DAYANARA CORTES Order Number: [id number] Reading MD: Chan Montana MD Measurements Intervals [place] Rate: 85 P: 73 GA: 138 QRS: 61 QRSD: 92 T: 100 QT: 350 QTc: 422 Interpretive Statements SINUS RHYTHM Electronically Signed On 10-12-2021 8:30:01 FINANCIAL REPORT SERVICE SALES AGENT by Chan Montana MD
[2021-10-09 11:00] LABS: BILIRUBIN,URINE NEG (NEG); CLARITY,URINE HAZY; COLOR,URINE YELLOW; GLUCOSE,URINE NEG (NEG); NITRITE,URINE NEG (NEG)
[2021-10-09 11:01] LABS: BACTERIA,URINE 0 /HPF (0-FEW); SQUAMOUS EPITHELIAL CELL,UR MANY /LPF; WBC,URINE OCC /HPF (0-4)
[2021-10-09 12:04] VITALS: BP 120/72
== END 2021-10-09 12:05 | disposition home or self-care (01) ==
LOC: ER 10:03
DX: F41.9 Anxiety disorder, unspecified (principal); R42 Dizziness and giddiness
CPT/HCPCS: 36415; 70450; 80048; 81001; 81025; 82947; 83735; 84484; 85025; 93005; 99285

== ENCOUNTER 2021-11-29 10:46 | Emergency (ER) | payer OTHER ==
[~2021-11-29] VITALS: Ht 165.1 cm; Wt 46.5 kg
[2021-11-29 10:46] VITALS: BP 101/67
--- NOTE | 2021-11-29 12:21 | PHYS DOC ---
Past History Past Medical History: Anxiety Additional Past Medical Histor: covid 2020 (DAYANARA CORTES APRN) Past Surgical History: No Surgical History (DAYANARA CORTES APRN) Smoking: Non-smoker Alcohol Use: None Drug Use: None (DAYANARA CORTES APRN) General Adult EDM: Chief Complaint: DIZZY/LIGHT HEADED HPI: HPI: Patient is a 26-year-old female who presents with dizziness since yesterday. Patient is well-known to this ER. Patient is seen multiple times for anxiety and panic attacks. Patient states "I have not been eating or drinking". "I do not eat a lot of solids". Patient states that she has multiple broken teeth and that is why she quit eating solids. Patient does have a PCP that she currently sees for anxiety. Anxiety and depression are her only medical history. (DAYANARA CORTES APRN) Review of Systems: Review of Systems: ROS At least 10 ROS systems have been reviewed and are negative except as documented in the HPI. General: Negative except as outlined in HPI above. Skin: Negative except as outlined in HPI above. HEENT: Negative except as outlined in HPI above. Neck: Negative except as outlined in HPI above. Respiratory: Negative except as outlined in HPI above.. Cardiovascular: Negative except as outlined in HPI above. Abdomen: Negative except as outlined in HPI above. : Negative except as outlined in HPI above. Back/MSK: Negative except as outlined in HPI above. Neuro: Negative except as outlined in HPI above. Psych: Negative except as outlined in HPI above. (DAYANARA CORTES APRN) Allergies: Allergies: Allergies Coded Allergies Type Severity Reaction Last Updated Verified No Known Drug Allergies 08/03/21 No (DAYANARA CORTES APRN) Physical Exam: PE: Constitutional: Well developed, well nourished, no acute distress, non-toxic appearance. [] HENT: Normocephalic, bilateral external ears normal, oropharynx moist, no oral exudates, nose normal. [] Eyes: PERRLA, conjunctiva normal, no discharge. [] Neck: Normal range of motion, no tenderness, supple, no stridor. [] Cardiovascular:Heart rate regular rhythm, no murmur [] Lungs & Thorax: Bilateral breath sounds clear to auscultation [] Abdomen: Bowel sounds normal, soft, no tenderness, no masses Skin: Warm, dry, no erythema, no rash. [] Back: No tenderness, no CVA tenderness. [] Extremities: No tenderness, ROM intact, no edema. [] Neurologic: Alert and oriented X 3, normal motor function, normal sensory function, no focal deficits noted. [] Psychologic: Anxious mood, abnormal judgment (DAYANARA CORTES APRN) Current Patient Data: Labs: Laboratory Tests Test 11/29/21 11:53 Glucose (Fingerstick) 95 mg/dL (70-99) Vital Signs: Vital Signs Date Time Temp Pulse Resp B/P (MAP) Pulse Ox O2 Delivery O2 Flow Rate FiO2 11/29/21 10:46 74 101/67 (78) 100 11/29/21 10:46 14 Room Air (DAYANARA CORTES APRN) EKG: EKG: [] (DAYANARA CORTES APRN) Radiology/Procedures: Radiology/Procedures: Sinus rhythm, heart rate [address] elevation or depression. No signs of STEMI. Read by Dr. Chavez. [] (DAYANARA CORTES APRN) Heart Score: C/O Chest Pain: No Risk Factors: Risk Factors: DM, Current or recent (<one month) smoker, HTN, HLP, family history of CAD, obesity. Risk Scores: Score 0 - 3: 2.5% MACE over next 6 weeks - Discharge Home Score 4 - 6: 20.3% MACE over next 6 weeks - Admit for Clinical Observation Score 7 - 10: 72.7% MACE over next 6 weeks - Early Invasive Strategies (DAYANARA CORTES APRN) Course & Med Decision Making: Course & Med Decision Making Pertinent Labs and Imaging studies reviewed. (See chart for details) [] Nontoxic-appearing, 26-year-old female presents with dizziness that started yesterday. Patient is well-known to this ER has been seen multiple times for anxiety. Patient states that she has not been drinking any fluids or eating well lately. Work-up in ER consisted of blood glucose, EKG. Discussed with patient the importance of eating and drinking fluids. Lack of fluids and nutrition is contributing to her symptoms of dizziness. Advised patient to call her PCP and make a follow-up appointment. I am giving patient a referral for a dentist to address her dental issues. Patient's perception of Discharge plan. Hemodynamically stable upon disposition. (DAYANARA CORTES APRN) Course & Med Decision Making Did not see or evaluate patient. Did not discuss patient with TILE PRESSER. Generally agree with TILE PRESSER's work-up and disposition per note. (GENTRY CHAVEZ MD) Anahi Disclaimer: Anahi Disclaimer: This electronic medical record was generated, in whole or in part, using a voice recognition dictation system. (DAYANARA CORTES APRN) Departure Departure: Impression: Primary Impression: Dizziness Additional Impression: Anxiety Disposition: HOME / SELF CARE / HOMELESS Condition: STABLE Referrals: COREY LOBO (PCP) Patient Instructions: Dizziness, [id number] Additional Instructions: You are seen the emergency room for dizziness. It is important that you are drinking plenty of fluids and eating. Your lack of fluids and nutrition are contributing to your symptoms. Please follow-up with your PCP for further management of anxiety. I am including a referral for a dentist to address your dental issues. Please return to the emergency room if you have worsening symptoms or concerns. EMERGENCY DEPARTMENT GENERAL DISCHARGE INSTRUCTIONS Thank you for coming to [facility] (ED) today and trusting us with you care. We trust that you had a positivie experience in our Emergency Department. If you wish to speak to the department management, you may call the director at [phone]. YOUR FOLLOW UP INSTRUCTIONS ARE FOLLOWS: 1. Do you have a private Doctor? If you do not have a private doctor, please ask for a resource list of physicians or clinics that may be able to assist you with follow up care. 2. The Emergency Physician has interpreted your x-rays. The X-Ray specialist will also review them. If there is a change in the findings, you will be notified in 48 hours when at all possible. 3. A lab test or culture has been done, your results will be reviewed and you will be notified if you need a change in treatment. ADDITIONAL INSTRUCTIONS AND INFORMATION: 1. Your care today has been supervised by a physician who is specially trained in emergency care. Many problems require more than one evaluation for a complete diagnosis and treatment. We recommend that you schedule your follow up appointment as recomme nded to ensure complete treatment of you illness or injury. If you are unable to obtain follow up care and continue to have a problem, or if your condition worsens, we recommend that you return to the ED. 2. We are not able to safely determine your condition over the phone nor are we able to give sound medical advice over the phone. For these safety reasons, if you call for medical advice we will ask you to come to the ED for further evaluation. 3. If you have any questions regarding these discharge instructions please call the ED at [phone]. SAFETY INFORMATION: In the interest of safety, wellness, and injury prevention; we encourage you to wear your sealbelt, if you smoke; quite smoking, and we encourage family to use a protective helmet for bicycling and other sporting events that present an increased risk for head injury. IF YOUR SYMPTOMS WORSEN OR NEW SYMPTOMS DEVELOP, OR YOU HAVE CONCERNS ABOUT YOUR CONDITION; OR IF YOUR CONDITION WORSENS WHILE YOU ARE WAITING FOR YOUR FOLLOW UP APPOINTMENT; EITHER CONTACT YOUR PRIMARY CARE DOCTOR, THE PHYSICIAN WHOSE NAME AND NUMBER YOU WERE GIVEN, OR RETURN TO THE ED IMMEDIATELY. DAYANARA CORTES APRN Nov 29, 2021 12:21 GENTRY CHAVEZ MD Dec 02, 2021 18:17
--- NOTE | 2021-11-29 19:05 | EKG ---
[address] [address] Test Date: 2021-11-29 Test Time: 12:38:32 Pat Name: ABRAHAM FULLER Department: Room: Gender: F [employer]: : 1995 Requested By: DAYANARA CORTES Order Number: [id number] Reading MD: Cain May Measurements Intervals [place] Rate: 70 P: 71 WA: 136 QRS: 49 QRSD: 92 T: 35 QT: 372 QTc: 404 Interpretive Statements SINUS RHYTHM NORMAL ECG RI6.02 Compared to ECG 10/09/2021 10:24:09 No significant changes Electronically Signed On 11-30-2021 9:03:51 CDT by Cain May
== END 2021-11-29 13:00 | disposition home or self-care (01) ==
LOC: ER 10:46
DX: R42 Dizziness and giddiness (principal); F41.9 Anxiety disorder, unspecified; F32.9 Major depressive disorder, single episode, unspecified
CPT/HCPCS: 82947; 93005; 99284

== ENCOUNTER 2021-12-18 09:32 | Emergency (ER) | payer OTHER ==
[~2021-12-18] VITALS: Ht 165.1 cm; Wt 46.5 kg
[2021-12-18 09:43] VITALS: BP 106/64
--- NOTE | 2021-12-18 09:56 | PHYS DOC ---
Past History Past Medical History: Anxiety Additional Past Medical Histor: covid 2020 Past Surgical History: No Surgical History Smoking: Non-smoker Alcohol Use: None Drug Use: None General Adult EDM: Chief Complaint: UPPER EXTREMITY SWELLING HPI: HPI: 26-year-old female who is well-known to the emergency room presents with left ring finger pain and swelling. Patient states that it hurts when she bends her finger. She feels like it was swollen last night. She denies any trauma. She is worried about "spider bite" there is no evidence of skin disruption. The patient struggles with severe anxiety at baseline. She does not swallow pills. Review of Systems: Review of Systems: Constitutional: Denies fever or chills Eyes: Denies change in visual acuity HENT: Denies nasal congestion or sore throat Respiratory: Denies cough or shortness of breath Cardiovascular: Denies chest pain or edema GI: Denies abdominal pain, nausea, vomiting, bloody stools or diarrhea : Denies dysuria Musculoskeletal: Left ring finger pain Integument: Denies rash Neurologic: Denies headache, focal weakness or sensory changes Endocrine: Denies polyuria or polydipsia Lymphatic: Denies swollen glands Psychiatric: Denies depression or anxiety Allergies: Allergies: Allergies Coded Allergies Type Severity Reaction Last Updated Verified No Known Drug Allergies 08/03/21 No Physical Exam: PE: Constitutional: Well developed, well nourished, no acute distress, non-toxic appearance. [] HENT: Normocephalic, atraumatic, bilateral external ears normal, oropharynx moist, no oral exudates, nose normal. [] Eyes: PERRLA, EOMI, conjunctiva normal, no discharge. [] Neck: Normal range of motion, no tenderness, supple, no stridor. [] Cardiovascular:Heart rate regular rhythm, no murmur [] Lungs & Thorax: Bilateral breath sounds clear to auscultation [] Abdomen: Bowel sounds normal, soft, no tenderness, no masses, no pulsatile masses. [] Skin: Warm, dry, no erythema, no rash. [] Back: No tenderness, no CVA tenderness. [] Extremities: No tenderness, no cyanosis, no clubbing, ROM intact, no edema. No obvious swelling, deformity, abnormal skin of the hands. [] Neurologic: Alert and oriented X 3, normal motor function, normal sensory function, no focal deficits noted. [] Psychologic: Affect normal, judgement normal, mood extremely anxious. [] EKG: EKG: [] Radiology/Procedures: Radiology/Procedures: [] Heart Score: C/O Chest Pain: N/A Risk Factors: Risk Factors: DM, Current or recent (<one month) smoker, HTN, HLP, family history of CAD, obesity. Risk Scores: Score 0 - 3: 2.5% MACE over next 6 weeks - Discharge Home Score 4 - 6: 20.3% MACE over next 6 weeks - Admit for Clinical Observation Score 7 - 10: 72.7% MACE over next 6 weeks - Early Invasive Strategies Course & Med Decision Making: Course & Med Decision Making Pertinent Labs and Imaging studies reviewed. (See chart for details) The patient's examination is completely benign. She could have some discomfort from the A1 or A2 samuel. I have advised that she take 400 mg of ibuprofen 3 times a day for the next couple days. [facility] with liquid Motrin. She can also ice the area. She is stable for discharge at this time. [] Dragon Disclaimer: Dragon Disclaimer: This electronic medical record was generated, in whole or in part, using a voice recognition dictation system. Departure Departure: Impression: Primary Impression: Finger pain, left Disposition: HOME / SELF CARE / HOMELESS Condition: STABLE Referrals: COREY LOBO (PCP) Patient Instructions: Finger Sprain, [id number] CHRISTIANO MAE DO Dec 18, 2021 09:56
[2021-12-18] MEDS ORDERED: IBUPROFEN 100 MG/5 ML ORAL.SUSP. PO ONE (10:00)
--- NOTE | 2021-12-18 10:23 | RAD ---
Single AP view of the left hand with lateral and oblique views of the fourth digit. INDICATION: Injured finger yesterday now with swelling and pain Electronically signed by: Klaus Malone MD (12/18/2021 10:21 AM) [id number]
== END 2021-12-18 10:57 | disposition home or self-care (01) ==
LOC: ER 09:32
DX: M79.645 Pain in left finger(s) (principal); R22.32 Localized swelling, mass and lump, left upper limb; F41.9 Anxiety disorder, unspecified
CPT/HCPCS: 73140; 99283